=== PATIENT | female | born 1955 | race Caucasian/White ===

== ENCOUNTER → 2020-08-19 12:40 | Outpatient (CLI) | payer MEDICARE, BC, SELFPAY ==
--- NOTE | ~2020-08-19 | XR_ITS ---
EXAMINATION: XR foot RT min 3V DATE: 08/19/2020 13:25 INDICATION: Right foot injury with pain and swelling in the region of the second and third metatarsal s TECHNIQUE: Dorsoplantar, two oblique and lateral views of the right foot were obtained. COMPARISON: None. FINDINGS: Bone alignment is normal. No fracture. Severe osteoarthritis at the right first metacarpophalangeal j oint with irregular cortical contour and suggestion of subarticular cystic change at both sides of th e joint space. Nonspecific widening of the joint space at the second distal interphalangeal joint whi ch could result in the presence of a joint effusion or due to a prior osteotomy at the head of the mi ddle phalanx. Mild osteoarthritis at several of the tarsal metatarsal, interphalangeal and remaining metatarsophalangeal joints. Small plantar calcaneal spur. Mild hypertrophic change at the dorsolatera l aspect of the anterior process of the calcaneus. Soft tissues are unremarkable. IMPRESSION: 1. No acute osseous abnormality. 2. 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 Reviewed, dictated and finalized at location A.
== END ==
PROVIDERS: Visit Provider Family Medicine Adolescent Medicine
DX: S99.921A Unspecified injury of right foot, initial encounter (principal); M19.071 Primary osteoarthritis, right ankle and foot
CPT/HCPCS: 73630

== ENCOUNTER 2021-12-28 18:34 | Emergency (ER) | payer MEDICARE, SELFPAY ==
[2021-12-28 18:48] VITALS: BP 126/84; PULSE 72; RESP 18; TEMP 36.8; O2SAT 97
--- NOTE | 2021-12-28 19:14 | ED.GENADULT ---
HPI - General Adult General Chief complaint: Wound/Laceration Stated complaint: laceration lt 5th finger History of Present Illness HPI narrative: Patient is a 66-year-old female who presents to [facility] for evaluation of a left pinky injury that occurred yesterday at 7 PM. Patient reports she accidentally lacerated pinky on hair spring cutter while quilting. She is accompanied by her . Additionally, she reports pain and swelling. No improvement after using Vaseline. Patient does not believe she is up-to-date on her tetanus. Related Data Home Medications Medication Instructions Recorded Confirmed oxybutynin chloride 10 mg 10 mg PO DAILY 12/17/21 12/28/21 tablet,extended release 24 hr Allergies Allergy/AdvReac Type Severity Reaction Status Date / Time Penicillins Allergy Unknown Rash Verified 12/28/21 18:57 Review of Systems Review of Systems: Pertinent negatives: fever, chills, sweats, malaise, change in appetite, poor p.o. intake, malaise, skin color changes, streaking, rash, warmth, numbness, tingling, loss of sensation, deformity, decreased range of motion, weakness, difficulty with coordination, nausea, vomiting, shortness of breath, chest pain, heart palpitations, and heart murmur. PMFSH Surgical History Surgical History History of tonsillectomy and adenoidectomy Hx of dilation and curettage Family History Family History Father Hypertension Alzheimers disease Heart disease Mother Hypertension Alzheimers disease Heart disease Sibling Diabetes mellitus COPD (chronic obstructive pulmonary disease) Sibling Melanoma Social History Social History Smoking status: Never smoker Comments I have reviewed and agree with the patient's past medical, surgical, social, and family hx as documented by the RN. There is no relevant family history pertinent to the presenting complaint. Exam Narrative: GENERAL: Well-appearing, well-nourished, and in no acute distress. HEAD: Normocephalic, atraumatic. NECK: Supple. No Lymphadenopathy or nuchal rigidity appreciated. CHEST: Bilateral lung sotelo are clear to auscultation. No respiratory distress. No evidence of cough or pleuritic cp upon examination. HEART: Regular rate and rhythm. No murmur, gallop, or rub heard. EXTREMITIES: No evidence of decreased ROM, cyanosis, deformity, rash, or puncture. No evidence of pain with active/passive ROM. No evidence of dislocation, ligament laxity, effusion, or pain at rest. Pulses palpable at 2+, strength 5/5, and cap refill < 3 seconds in affected extremity. DTRs normal. Gait normal. SKIN: Warm, dry, no rash. Mild swelling noted to tip of left 5th digit. 0.5 cm linear laceration is noted to the dorsal aspect of the distal end of 5th digit. Laceration involves nail. Laceration is clean. NEURO: No focal deficits. Alert and oriented x3. SPECIAL OBSERVATIONS: Smiling. Laughing. Course Course Level of Care: Express Care Visit Vital Signs Vital signs: Vital Signs Temperature 98.3 F 12/28/21 18:48 Pulse Rate 72 12/28/21 18:48 Respiratory Rate 18 12/28/21 18:48 Blood Pressure 126/84 12/28/21 18:48 Pulse Oximetry 97 12/28/21 18:48 Oxygen Delivery Room Air 12/28/21 18:48 Temperature 98.3 F 12/28/21 18:48 Pulse Rate 72 12/28/21 18:48 Respiratory Rate 18 12/28/21 18:48 Blood Pressure 126/84 12/28/21 18:48 Pulse Oximetry 97 12/28/21 18:48 Oxygen Delivery Room Air 12/28/21 18:48 Reviewed Medical Decision Making Differential Diagnosis Differential Diagnosis: Laceration, abrasion, cellulitis, ulcer Vital Signs Vital Signs: Vital Signs Temperature 98.3 F 12/28/21 18:48 Pulse Rate 72 12/28/21 18:48 Respiratory Rate 18 12/28/21 18:48 Blood Pressure 126/84 10/1
[2021-12-28] MEDS: TETANUS/DIPHTHERIA TOXOIDS ADSORB 0.5 ML VIAL (*BKC) IM (19:17)
== END 2021-12-28 19:36 | disposition home or self-care (01) ==
PROVIDERS: Emergency Provider Nurse Practitioner Family; PCP Family Medicine Adolescent Medicine
DX: S61.217A Laceration without foreign body of left little finger without damage to nail, initial encounter (principal); W27.8XXA Contact with other nonpowered hand tool, initial encounter; Z23 Encounter for immunization; E78.00 Pure hypercholesterolemia, unspecified
CPT/HCPCS: 29130; 90471; 90714; 99213; G0463

== ENCOUNTER 2022-01-13 08:24 | Outpatient (CLI) | payer MEDICARE, SELFPAY ==
--- NOTE | 2022-01-13 08:28 | EST_ITS ---
Patient Info Name: Raysa Quan Age: 66 years : 1955 Gender: Female Ht: 67 in Wt: 165 lbs BSA: 1.89 m2 BP: 128 / 79 mmHg Technical Quality: Good Exam Date: 01/13/2022 9:17 AM Exam Location: [facility] Pulmonary Patient Status: Outpatient Admit Date: 01/13/2022 Staff Ordering Physician: Chadwick Coburn MD Senior Librarian: Shanice Mcclellan RDCS, RT Referring Physician: Irish COBURN; Exercise Technologist: Jennie Fong CT Exercise Physician: Linda Rossi MD Exam Type: CA stress echo Study Info Indications R07.9 - Chest pain, unspecified Treadmill exercise stress echocardiogram is performed. Summary 1. Exercise ECG is equivocal for ischemia. 2. Normal left venticular systolic function with no regional wall motion abnormalities noted at rest. 3. Overall global left ventricular systolic function Improved post stress. 4. No regional wall motion abnormalities noted post stress. 5. Normal augmentation of all wall segments without evidence of ischemia with stress. Stress Echo Findings Left Ventricle Normal left venticular systolic function with no regional wall motion abnormalities noted at rest. Overall global left ventricular systolic function Improved post stress. No regional wall motion abnormalities noted post stress. Normal augmentation of all wall segments without evidence of ischemia with stress. Protocol: Oracio Stress ECG Details Stage: REST Duration (min): 0 min : 59 sec Speed (mph): 0.0 Grade (%): 0 HR (bpm): 55 SBP (mmHg): 128 DBP (mmHg): 79 METS: --- Stage: REST Duration (min): 11 min : 37 sec Speed (mph): 0.0 Grade (%): 0 HR (bpm): 57 SBP (mmHg): 128 DBP (mmHg): 79 METS: --- Stage: STAGE 1 Duration (min): 1 min : 0 sec Speed (mph): 1.7 Grade (%): 10 HR (bpm): 87 SBP (mmHg): 128 DBP (mmHg): 79 METS: --- Stage: STAGE 1 Duration (min): 2 min : 0 sec Speed (mph): 1.7 Grade (%): 10 HR (bpm): 100 SBP (mmHg): 128 DBP (mmHg): 79 METS: --- Stage: STAGE 1 Duration (min): 3 min : 0 sec Speed (mph): 1.7 Grade (%): 10 HR (bpm): 95 SBP (mmHg): 168 DBP (mmHg): 82 METS: --- Stage: STAGE 2 Duration (min): 1 min : 0 sec Speed (mph): 2.5 Grade (%): 12 HR (bpm): 109 SBP (mmHg): 168 DBP (mmHg): 82 METS: --- Stage: STAGE 2 Duration (min): 2 min : 0 sec Speed (mph): 2.5 Grade (%): 12 HR (bpm): 111 SBP (mmHg): 176 DBP (mmHg): 88 METS: --- Stage: STAGE 2 Duration (min): 3 min : 0 sec Speed (mph): 2.5 Grade (%): 12 HR (bpm): 117 SBP (mmHg): 176 DBP (mmHg): 88 METS: --- Stage: STAGE 3 Duration (min): 1 min : 0 sec Speed (mph): 3.4 Grade (%): 14 HR (bpm): 125 SBP (mmHg): 194 DBP (mmHg): 92 METS: --- Stage: STAGE 3 Duration (min): 2 min : 0 sec Speed (mph): 3.4 Grade (%): 14 HR (bpm): 136 SBP (mmHg): 194 DBP (mmHg): 92 METS: ---
== END 2022-01-13 08:25 | disposition home or self-care (01) ==
PROVIDERS: Visit Provider Family Medicine Adolescent Medicine
DX: R07.9 Chest pain, unspecified (principal); E78.00 Pure hypercholesterolemia, unspecified
CPT/HCPCS: 93351

== ENCOUNTER → 2023-01-26 14:38 | Outpatient (CLI) | payer MEDICARE, SELFPAY ==
--- NOTE | ~2023-01-26 | XR_ITS ---
XR chest 2V DATE: 01/26/2023 14:56 INDICATION: Cough TECHNIQUE: 2 views COMPARISON: 02/08/2009 FINDINGS: Heart size is within normal limits. There is minimal aortic unfolding. No pulmonary infil trate or consolidation, pulmonary vascular congestion or pleural effusion or pneumothorax. IMPRESSION: No active cardiopulmonary disease Reviewed, dictated and finalized at location L. PULLER
== END ==
PROVIDERS: PCP Family Medicine Adolescent Medicine; Visit Provider Family Medicine Adolescent Medicine
DX: R05.9 Cough, unspecified (principal)
CPT/HCPCS: 71046

== ENCOUNTER 2023-04-25 10:05 | Emergency (ER) | payer MEDICARE, SELFPAY ==
[2023-04-25 10:20] VITALS: BP 121/90; PULSE 70; RESP 16; TEMP 35.9; O2SAT 98
--- NOTE | 2023-04-25 10:29 | ED.URI ---
HPI - URI/Sore Throat General Chief Complaint: Upper Respiratory Infection Stated Complaint: COUGH/SORE THROAT/CONGESTION Time Seen by Provider: 04/25/23 10:29 Source: patient, RN notes reviewed and old records reviewed Mode of arrival: ambulatory Limitations: no limitations History of Present Illness HPI Narrative: 67-year-old female presents to the [facility] with complaints of cough, sore throat and congestion that started on , 3 days ago Patient states that she has had an intermittent cough since November, was evaluated by her primary care provider in December, reviewed medical record from then. Patient had stop lisinopril. Patient states that her cough did improve at that time and never called her primary care back. Patient reports taken and at home COVID test which she reports is negative Patient denies chest pain or shortness of breath. Has just had an intermittent cough sometimes productive with clear mucus Patient denies any fevers Related Data Home Medications Medication Instructions Recorded Confirmed aspirin 81 mg tablet,delayed 81 mg PO DAILY 05/06/22 04/25/23 release (Adult Aspirin Regimen) mirabegron 50 mg tablet,extended 50 mg PO DAILY 12/28/22 04/25/23 release 24 hr (Myrbetriq) bimatoprost 0.01 % eye drops 2 drp EACH EYE USEASDIRECTD 04/25/23 04/25/23 (Iraidaigan) Allergies Allergy/AdvReac Type Severity Reaction Status Date / Time lisinopril Allergy Unknown Cough Verified 04/25/23 10:27 Penicillins Allergy Unknown Rash Verified 04/25/23 10:27 Review of Systems Review of Systems: All systems reviewed & are unremarkable except as noted in HPI and below Constitutional: Constitutional: Reports no additional constitutional complaints Eyes: Eyes: Reports no additional eye complaints ENT: Reports system reviewed and no additional complaints, except as documented Cardiovascular: Cardiovascular: Reports no additional cardiovascular complaints, Denies chest pain and Denies dyspnea Respiratory: Respiratory: Reports as per HPI, Denies chest congestion, Reports cough and Denies dyspnea Gastrointestinal: Gastrointestinal: Reports no additional gastrointestinal complaints, Denies abdominal pain, Denies nausea and Denies vomiting Musculoskeletal: Musculoskeletal: Reports no additional musculoskeletal complaints Integumentary/Breasts: Skin/Breast: Reports system reviewed and no additional complaints, except as docu Neurologic: Reports system reviewed and no additional complaints, except as documented Psychiatric: Psychiatric: Reports no additional psychiatric complaints Allergic/Immunologic: Allergic/Immunologic: Reports no additional allergic/immunologic complaints PMFSH Surgical History Surgical History History of tonsillectomy and adenoidectomy Hx of dilation and curettage Family History Family History Father Hypertension Alzheimers disease Heart disease Mother Hypertension Alzheimers disease Heart disease Sibling Diabetes mellitus COPD (chronic obstructive pulmonary disease) Sibling Melanoma Social History Social History Smoking status: Never smoker Comments At the time of my signature, I reviewed and agree with the nursing past medical, surgical, social, and family history. There is no relevant family history pertinent to the patient complaint. Exam Const: General: cooperative, healthy appearing, comfortable, no acute distress, well developed, alert and well nourished Nutritional Appearance: well nourished Orientation/consciousness: patient oriented x3 Limitations: no limitations HENMT: Head: normal to inspection Ears: hearing grossly normal bilaterally, external ears normal, TM's normal bilaterally, EAC's normal, mastoids normal and no periauricular adenopathy Face/Nose/Sinus: Normal external nose pr
== END 2023-04-25 11:11 | disposition home or self-care (01) ==
PROVIDERS: Emergency Provider Nurse Practitioner; PCP Family Medicine Adolescent Medicine
DX: R09.82 Postnasal drip (principal); R05.1 Acute cough; Z79.82 Long term (current) use of aspirin
CPT/HCPCS: 87081; 87880; 99213; G0463

== ENCOUNTER 2023-08-25 09:06 | Emergency (ER) | payer MEDICARE, SELFPAY ==
--- NOTE | 2023-08-25 09:10 | ED.URI ---
HPI - URI/Sore Throat General Chief Complaint: Upper Respiratory Infection Stated Complaint: SORE THROAT/COUGH/LOSING VOICE Time Seen by Provider: 08/25/23 09:10 Source: patient Mode of arrival: ambulatory Limitations: no limitations History of Present Illness HPI Narrative: Patient is a 59-year-old female that presents with sore throat, cough, congestion and hoarseness for 4 days. Patient seen for same symptoms in April. Denies any fever, chills, nausea, vomiting, diarrhea. Patient took at home COVID test that was negative. Patient has been taking Tessalon Perles and DayQuil. Related Data Home Medications Medication Instructions Recorded Confirmed aspirin 81 mg tablet,delayed 81 mg PO DAILY 05/06/22 08/25/23 release (Adult Aspirin Regimen) mirabegron 50 mg tablet,extended 50 mg PO DAILY 12/28/22 08/25/23 release 24 hr (Myrbetriq) bimatoprost 0.01 % eye drops 2 drp EACH EYE USEASDIRECTD 04/25/23 08/25/23 (Iraidaigan) Allergies Allergy/AdvReac Type Severity Reaction Status Date / Time lisinopril Allergy Unknown Cough Verified 04/25/23 10:27 Penicillins Allergy Unknown Rash Verified 04/25/23 10:27 Review of Systems Review of Systems: All systems reviewed & are unremarkable except as noted in HPI and below Constitutional: Constitutional: Denies body ache(s), Denies chills, Denies fatigue, Denies fever(s), Denies headache(s), Denies malaise and Denies weakness Eyes: Eyes: Denies blurry vision, Denies itchy eyes and Denies loss of vision ENT: Denies otalgia, Denies headache(s), Reports hoarseness, Reports nasal congestion, Denies sinus pain and Reports sore throat Cardiovascular: Cardiovascular: Denies chest pain, Denies irregular heart rhythm and Denies dyspnea Respiratory: Respiratory: Reports cough and Denies dyspnea Gastrointestinal: Gastrointestinal: Denies abdominal pain, Denies diarrhea, Denies nausea and Denies vomiting Musculoskeletal: Musculoskeletal: Denies back pain, Denies myalgias and Denies arthralgias Integumentary/Breasts: Skin/Breast: Denies pruritus and Denies rash Neurologic: Denies headache(s), Denies loss of vision and Denies weakness Psychiatric: Psychiatric: Reports no additional psychiatric complaints Endocrine: Endocrine: Denies fatigue Allergic/Immunologic: Allergic/Immunologic: Denies itchy eyes PMFSH Surgical History Surgical History History of tonsillectomy and adenoidectomy Hx of dilation and curettage Family History Family History Father Hypertension Alzheimers disease Heart disease Mother Hypertension Alzheimers disease Heart disease Sibling Diabetes mellitus COPD (chronic obstructive pulmonary disease) Sibling Melanoma Social History Social History Smoking status: Never smoker Comments At time of signature, agree with nursing past medical, surgical, social and family history. There is no relevant family history pertinent to the presenting complaint. Exam Const: General: cooperative, healthy appearing, comfortable, no acute distress and well nourished Nutritional Appearance: well nourished Orientation/consciousness: patient oriented x3 Limitations: no limitations HENMT: Head: normal to inspection, normocephalic and atraumatic Ears: hearing grossly normal bilaterally, external ears normal, TM's normal bilaterally, EAC's normal and no periauricular adenopathy Face/Nose/Sinus: Normal external nose present, Abnormal mucous membranes and turbinates present erythematous bilateral and diffuse, normal facial exam, sinuses nontender and face symmetric Face and sinus: normal facial exam, sinuses nontender and face symmetric Mouth: Yes Normal oral and palatal mucosa present, Yes lip normal, Yes tongue normal, Yes Normal salivary glands and ducts present, Yes oropharynx normal and Yes mo
[2023-08-25 09:20] VITALS: BP 130/97; PULSE 71; RESP 15; TEMP 37.3; O2SAT 98
[2023-08-25 09:45] VITALS: BP 114/70; PULSE 61; RESP 15; TEMP 36.8; O2SAT 99
== END 2023-08-25 09:50 | disposition home or self-care (01) ==
PROVIDERS: Emergency Provider Nurse Practitioner Family; PCP Family Medicine Adolescent Medicine
DX: J06.9 Acute upper respiratory infection, unspecified (principal); R05.9 Cough, unspecified
CPT/HCPCS: 87081; 87880; 99213; G0463

== ENCOUNTER 2024-03-10 12:22 | Outpatient (CLI) | payer MEDICARE, SELFPAY ==
--- NOTE | 2024-03-10 14:48 | WPDPFTINT ---
PFT Procedure Performed PFT Procedure Performed Spirometry with Pre/Post Bronchodilator Plethysmography (Lung Vol) Diffusing Cap (DLCO) Flow Vol Loop PFT Interpretation This is a pulmonary function test with pre and post-bronchodilator spirometry, plethysmography and diffusing capacity. The test was performed and results interpreted in accordance with the 2019 and 2005 ATS/ERS Task Force guidelines respectively using the Global Lung Function Initiative-2012 reference equations. Patient demonstrated good effort and cooperation. Reproducibility criteria were met. The quality of the pre bronchodilator spirometry maneuver was Grade A and post bronchodilator spirometry maneuver was Grade A. Findings: Spirometry: The contour the inspiratory and expiratory flow tracing are normal. The pre bronchodilator FVC is 2.63 L, 82% predicted. The pre bronchodilator FEV1 is 2.13 L, 87% predicted. The pre bronchodilator FEV1: FVC ratio is 81%. The post bronchodilator FVC is 2.63 L, representing no change. The post bronchodilator FEV1 is 2.21 L, representing a 4% increase. The post bronchodilator FEV1: FVC ratio is 84%. Plethysmography: The total lung capacity is 5.52 L, 100% predicted. The functional residual capacity is 3.29 L, 104% predicted. The residual volume is 2.85 L, 123% predicted. Diffusing capacity: The diffusing capacity unadjusted for hemoglobin and carboxyhemoglobin is 19.3, 88% predicted. The diffusing capacity adjusted for alveolar volume is 4.86, 117% predicted. Impression: The spirometry is normal without evidence of an obstructive abnormality. There is no significant improvement after inhaling a single dose of albuterol. The lung volumes are normal. The diffusing capacity is normal. There are no prior studies for comparison
== END 2024-03-10 12:23 | disposition home or self-care (01) ==
LOC: ANHPFT 12:22
PROVIDERS: PCP Family Medicine Adolescent Medicine; Visit Provider Nurse Practitioner Family
DX: R05.9 Cough, unspecified (principal); R94.2 Abnormal results of pulmonary function studies
CPT/HCPCS: 94060; 94726; 94729

== ENCOUNTER 2024-08-10 13:26 | Outpatient (CLI) | payer MEDICARE, SELFPAY ==
--- NOTE | ~2024-08-10 | DEXA_ITS ---
Bone Density Report Name: SHEY HOUSER Age: 68 Sex: Female Ethnicity: White Date of : 1955 Indication: postmenopausal; screening for osteoporosis; asthma or emphysema; Referring Provider: ALY ESTRADA Study: Bone densitometry was performed. Exam Date: August 10, 2024 Accession number: [id number] Bone Density: Region BMD T-score Z-score Classification AP Spine(L1-L4) 1.030 -0.2 1.9 Normal Femoral Neck (Left) 0.776 -0.7 1.1 Normal Total Hip (Left) 0.995 0.4 1.9 Normal Femoral Neck (Right) 0.777 -0.6 1.1 Normal Total Hip (Right) 0.951 0.1 1.6 Normal Femoral Neck Mean 0.777 -0.7 1.1 Normal Total Hip Mean 0.973 0.3 1.7 Normal World Health Organization criteria for BMD impression classify patients as: Normal (T-score at or above -1.0), Osteopenia (T-score between -1.0 and -2.5), or Osteoporosis (T-score at or below -2.5). Clinical Information Provided by Patient: Has the following medical conditions: Asthma or Emphysema Patient maximum height was 67 Menopause Age: 51 No regular weight bearing exercise Drinks caffeinated beverages Onset of menses at age 16 Number of children 1 Impression: The patient has normal bone mass. Discussion: BONE DENSITY IS ABOVE THE MINIMUM DESIRABLE LEVEL AT ALL SKELETAL SITES TESTED. This patient?s bone mineral density is above the minimum desirable level (T-score -1.0 or better) at all sites measured. The patient should follow a healthful lifestyle (good nutrition with adequate calcium and vitamin D, and appropriate weight-bearing exercise). Follow-Up: Consider repeating this study in 5 years or sooner if there is some new clinical indication. Reported by: JOHNATHON on 08/10/2024 1:49:00 PM. Reviewed, dictated and finalized at location A.
--- OUTSIDE RECORDS SUMMARY | 2024-08-10 13:31 | XMS_ITS | Referral Summary ---
Author Organization [facility] Address [address] [place] [address] Care Team Providers Care Sr. Merchandise Planner Name Role Phone Chadwick Coburn MD Primary Care Prov ider Allergies Active Allergy Reactions Criticality Noted Date Comments Lisinopril Muscle pain Medium 01/10/2024 Penicillins Unknown 04/07/2011 Medications Maged Ellipta 200-62.5-25 mcg inhaler Inhale 1 puff daily Active cetirizine (ZyrTEC) 10 mg tablet Take 1 tablet (10 mg total) by mouth daily Active azelastine (ASTELIN) 137 mcg (0.1 %) nasal spray Administer 2 sprays into each nostril 2 (two) times a day Active famotidine (PEPCID) 40 mg tablet Take 1 tablet (40 mg total) by mouth daily Active Myrbetriq 50 mg tablet extended release 24 hr Take 1 tablet (50 mg total) by mouth daily Active Flonase Allergy Relief 50 mcg/actuation nasal spray Administer 2 sprays into each nostril daily Active EPINEPHrine 0.3 mg/0.3 mL auto-injection syringe Inject 0.3 mL (0.3 mg total) under the skin once Active montelukast (SINGULAIR) 10 mg tablet Take 1 tablet (10 mg total) by mouth nightly Active albuterol HFA (PROVENTIL HFA,VENTOLIN HFA,PROAIR HFA) 90 mcg/actuation inhaler Inhale 2 puffs every 6 (six) hours as needed Active rosuvastatin (CRESTOR) 5 mg tablet Take 1 tablet (5 mg total) by mouth daily Active Active Problems Problem Noted Date Diagnosed Date Benign nevus 09/11/2016 Sebaceous cyst 09/11/2016 Skin neoplasm 09/11/2016 Benign neoplasm of skin 04/07/2011 Social History Tobacco Use Types Packs/Day Years Used Date Smoking Tobacco: Never Comments Unknown Sex and Gender Information Value Date Recorded Sex Assigned at Not on file 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 Merchandise Planner Relationship Specialty Start Date End Date Chadwick Coburn MD [address] [place] [address] PCP - General Family Medicine 10/26/19
--- OUTSIDE RECORDS SUMMARY | 2024-08-10 13:31 | XMS_ITS | Encounter Summary ---
Author Organization [facility] Address [address] [place] [address] Care Team Providers Care Postal Support Employee Name Role Phone Chadwick Coburn MD Primary Care Provider [phone] Encounter Details Date Type Department Care Team (Latest Contact Info) Description 10/10/2003 Outpatient Historical [facility] Boucher, Nickolas Avlarado MD [address] [facility] [address] [place] [address] FOLLOW-UP EXAM NEC (Primary Dx) Social History Tobacco Use Types Packs/Day Years Used Date Smoking Tobacco: Never Assessed Comments Unknown Sex and Gender Information Value Date Recorded Sex Assigned at Not on file 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
--- OUTSIDE RECORDS SUMMARY | 2024-08-10 13:31 | XMS_ITS | Encounter Summary ---
Author Organization [facility] Address [address] [place] [address] Care Team Providers Care Data Base Design Analyst Name Role Phone Aly Coburn MD Primary Care Provider +1- [phone] Encounter Details Date Type Department Care Team (Latest Contact Info) Description 10/17/2007 Outpatient Historical HIS [facility] Jonathan Anderson MD [address] [facility] [address] [place] [address] Other Screening Mammogram Social History Tobacco Use Types Packs/Day Years Used Date Smoking Tobacco: Never Assessed Comments Unknown Sex and Gender Information Value Date Recorded Sex Assigned at Not on file 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 [place], [place] [address] Admit Date: 10/17/2007 SHEY HOUSER Sex: F Admit Prov: JONATHAN LEE Date: 1955 Primary Care Prov: ALY LOEPZ CMRN: [id number] Room: LIZ N: [id number] IMAGING SERVICES Ordering Prov: JONATHAN LEE Accession Number: [id number] Interpretation BILATERAL SCREENING DIGITAL MAMMOGRAMS WITH COMPUTER ASSISTED DIAGNOSIS, 10/17/2007 Reason For Examination: History of abnormal mammograms. Prior benign biopsy on the left. Findings: The parenchyma is moderately dense. Benign-appearing nodules are seen bilaterally. There is no spiculation, malignant calcification or other sign of malignancy. Since 10/21/2006, there has been no significant change. The CAD system was utilized. Conclusion: No mammographic evidence of malignancy. Assessment BIRADS: 2-Benign finding Recommendation: Normal interval follow-up Dictated by: ZACK MUÑOZ Electronically signed by: ZACK MUÑOZ 10/17/2007 14:31 Transcribed: 10/17/2007 14:00 DKT Procedure Note Zack Muñoz MD - 10/17/2007 [facility] [place] [address], [place] [address] Admit Date: 10/17/2007 SHEY HOUSER Sex: F Admit Prov: JONATHAN LEE Date: 1955 Primary Care Prov: ALY LOPEZ CMRN: [id number] Room: LIZ N: [id number] IMAGING SERVICES Ordering Prov: JONATHAN LEE Interpretation BILATERAL SCREENING DIGITAL MAMMOGRAMS WITH COMPUTER ASSISTEDDIAGNOSIS, 10/17/2007 Reason For Examination: History of abnormal mammograms. Prior benignbiopsy on the left. Findings: The parenchyma is moderately dense. Benign-appearingnodules are seen bilaterally. There is no spiculation, malignant calcification orother sign of malignancy. Since 10/21/2006, there has been no significant change. The CAD systemwas utilized. Conclusion: No mammographic evidence of malignancy. Assessment BIRADS: 2-Benign finding Recommendation: Normal interval follow-up Dictated by: ZACK MUÑOZ Electronically signed by: ZACK MUÑOZ 10/17/2007 14:31 Transcribed: 10/17/2007 14:00 DKT us Jonathan Lee MD MAMMO ORDERABLES Final Resul t documented in this encounter Visit Diagnoses Diagnosis Other screening mammogram documented in this encounter Care Teams Data Base Design Analyst Relationship Specialty Start Date End Date Aly Coburn MD PCP - General 11/05/08 documented as of this encounter
--- OUTSIDE RECORDS SUMMARY | 2024-08-10 13:31 | XMS_ITS ---
Author Organization [facility] [place] ([address]) Address [address] [place] [address] Care Team Providers Care Nursing Informatics Analyst Name Role Phone Chadwick Tapia Primary Care Provider Unavail Connie Rose Unavailable [phone] Chadwick Makrham Unavailable [phone] REASON FOR VISIT SCIT (Aeroallergen) Social History Sex Assigned At : Social History Observation Description Sex Assigned At Female Encounters Encounter Location Date Provider Diagnosis [facility] [address] [place] [address] 08/09/2024 Chadwick Markham Plan Of Treatment Next Appt Details Provider Name:Chadwick Markham , 08/31/2024 02:00:00 PM, [email or web address], [address], Provider Name:Connie arellano, 11/28/2024 10:00:00 AM, [email or web address], [place], [address], Progress Notes * Raysa HOUSERDOB: (68 yo F)Acc No.[id number]:08/09/2024 SCIT-Aeroallergen Patient: Nelli ROSASgy Provider: Paulina Markham MD :1955 A ge:68 Y S ex:Female Date:08/09/2024 Address:[address] [place], [place] [address] Pcp:Chadwick Tapia Subjective: * Chief Complaints: * 1 . SCIT (Aeroallergen). * Medical History: Objective: * Vitals: Assessment: Plan: * Treatment: * Billing Information: * Visit Code: * Procedure Codes: * Electronic signature of Francis Markham MD, FAAAAI on 08/10/2024 at 01:30 PM CDT Sign off status: Pending * Provider: Paulina Markham MD Date: 0 08/09/2024 Generated for Jacindai rosalva/Gabrielle/Maggieitting on: 08/10/2024 01:30 PM CDT
--- OUTSIDE RECORDS SUMMARY | 2024-08-10 13:31 | XMS_ITS | Encounter Summary ---
Author Organization [facility] Address [address] [place] [address] Care Team Providers Care Supervisor Gear Repair Name Role Phone Chadwick Coburn MD Primary Care Provider +1- [phone] Encounter Details Date Type Department Care Team (Latest Contact Info) Description 10/02/2002 Outpatient Historical HIS [facility] Boucher, Nickoals Alvarado MD [address] [facility] [address] [place] [address] UNSP ABNORMAL MAMMOGRAM (Primary Dx) Social History Tobacco Use Types Packs/Day Years Used Date Smoking Tobacco: Never Assessed Comments Unknown Sex and Gender Information Value Date Recorded Sex Assigned at Not on file 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
--- OUTSIDE RECORDS SUMMARY | 2024-08-10 13:31 | XMS_ITS | Encounter Summary ---
Author Organization [facility] Address [address] [place] [address] Care Team Providers Care Load Out Worker Name Role Phone Chadwick Coburn MD Primary Care Provider +1- [phone] Encounter Details Date Type Department Care Team (Latest Contact Info) Description 10/21/2006 Outpatient Historical HIS [facility] Boucher, Nickolas Alvarado MD [address] [facility] [address] [place] [address] Lump or Mass in Breast (Primary Dx) Social History Tobacco Use Types Packs/Day Years Used Date Smoking Tobacco: Never Assessed Comments Unknown Sex and Gender Information Value Date Recorded Sex Assigned at Not on file 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
--- OUTSIDE RECORDS SUMMARY | 2024-08-10 13:31 | XMS_ITS ---
Author Organization [facility] [facility] ([address]) Address [address] [place] [address] Care Team Providers Care District Agent Name Role Phone Chadwick Tapia Primary Care Provider Unavail able Connie Portillo Unavailable [phone] Chadwick Markham Unavailable [phone] REASON FOR VISIT SCIT - Traditional Schedule Immunotherapy (Week ), Needs evaluation for pre- immunotherapy health questionnaire to assess health status and medication review Medications Medication SIG (Take, Route, Frequency, Duration) Notes Start Date End Date Status Cetirizine HCl 10 MG 1 tablet Orally Onc e a day for 90 days Active Myrbetriq 50 MG 1 tablet Orally Once a day Not-Taking Myrbetriq Not-Taking SIT (Cluster) variable - see record per schedule subcutaneous per schedule for 999 days Active EPINEPHrine 0.3 MG/0.3ML as directed Inj ection once for 30 days 10/20/2023 Active SIT (Traditional) variable - see record per schedule subcutaneous per schedule for 999 days Active Cetirizine HCl 10 MG TAKE 1 TABLET BY [facility] ONCE DAILY for 90 Active Rosuvastatin Calcium 5 MG 1 tablet Orally Once a day Active Flonase Allergy Relief 50 MCG/ACT 1 spray in each nostril Nasally Once a day Active Rosuvastatin Calcium Active AeroChamber MV - as directed for 30 days Any adult spacer Active Albuterol Sulfate HFA 108 (90 Base) MCG/ACT 1 puff as needed Inhalation every 4 hrs for 30 days Active Montelukast Sodium 10 MG 1 tablet Orally 30 minutes prior to SCIT for 30 days Active Famotidine 40 MG 1 tablet Orally 30 minutes prior to SCIT for 30 days Active Trelegy Ellipta 200-62.5-25 MCG/ACT 1 puff Inhalation Once a day for 90 days Active Azelastine HCl 137 MCG/SPRAY 2 sprays in each nostril Nasally Twice a day for 90 days Active Fluticasone Propionate 50 MCG/ACT 1 spray in each nostril Nasally Twice a day for 90 days Active Social History Sex Assigned At : Social History Observation Description Sex Assigned At Female Encounters Encounter Location Date Provider Diagnosis [facility] [address] [facility] [address] [place] [address] 08/10/2024 Chadwick Markham Allergic rhinitis du e to pollen J30.1 ; Allergic rhinitis due to animal (cat) (dog) hair and dander J30.81 ; Other allergic rhinitis J30.89 and Other chronic allergic conjunctivitis H10.45 Assessments Encounter Date Diagnosis (ICD Code) Assessment Notes Treatment Notes Treatment Clinical Notes Section Notes 08/10/2024 Allergic rhinitis due to pollen (ICD-10 - J30.1) 08/10/2024 Allergic rhinitis due to animal (cat) (dog) hair and dander (ICD-10 - J30.81) 08/10/2024 Other allergic rhinitis (ICD-10 - J30.89) 08/10/2024 Other chronic allergic conjunctivitis (ICD-10 - H10.45) 08/10/2024 Other Plan Of Treatment Next Appt Details Follow Up: 1 Week, Reason: S CIT Provider Name:Chadwick Markham , 08/31/2024 02:00:00 PM, [address] [employer] [place] [address], [address], Provider Name:Connie arellano, 11/28/2024 10:00:00 AM, [address] [employer], [address] [place] [address], [address], Progress Notes * Raysa HOUSERDOB: [birth year] (68 yo F)Acc No.[id number]:08/10/2024 SCIT-Aeroallergen Patient: Sherita Raysa MATHIS Provider: Paulina Markham MD :1955 A ge:68 Y S ex:Female Date:08/10/2024 Address:[address] [id number] Pcp:Chadwick Tapia Subjective: * Chief Complaints: * S CIT - Traditional Schedule Immunotherapy (Week )Needs evaluation for pre-immunotherapy health questionnaire to assess health status and medication review * HPI: * Introduction: The patient is here for scheduled specific allergen immunotherapy. Please see the attached specialty form regarding the specifics of the administration of these vaccines. As per our protocol, they must undergo a screening health questionnaire (medication changes, reaction(s) to last immunotherapy dose(s), current health status, ACT (if appropriate), self-injectable epinephrine on patient(?) and peak flow (if appropriate)). Also, the patient must wait in our office for 30 minutes after receiving immunotherapy. Furthermore, every patient must have an epinephrine pen (self-injectable) with them at the time of administration--and carry if for the following 1.5 hours after they leave our office. The patient must also have taken their antihistamine the day of the injection, preferably 2 hours prior. The consent form for SCIT (subcutaneous immunotherapy) is on file. * ROS: A LLERGY: Positive p er the HPI and history, otherwise unremarkable.? S PECIAL SENSES: Positve for n one. C ONSTITUTIONAL: Positive for n one. E NT: Positive p er the HPI and history, otherwise unremarkable.? R ESPIRATORY: Positive for p er the HPI and history, otherwise unremarkable. O PHTHALMOLOGY: Positive for p er the HPI and history, otherwise unremarkable. E NDOCRINOLOGY: Positive for n one. C ARDIOLOGY: Positive for n one. G ASTROENTEROLOGY: Positive for n one. U ROLOGY: Positive for n one. D ERMATOLOGY: Positive for n one. N EUROLOGY: Positive for n one. H EMATOLOGY/LYMPH: Positive for n one. M USCULOSKELETAL: Positive for n one. P SYCHOLOGY: Positive for n one. A ll other review of systems per the HPI and history, othwise unremarkable. * Medical History: * Surgical History: * Hospitalization/Major Diagno stic Procedure: * Medications: T akingCetirizine HCl 10 MG Tablet 1 tablet Orally Once a day Fluticasone Propionate 50 MCG/ACT Suspension 1 spray in each nostril Nasally Twice a day Azelastine HCl 137 MCG/SPRAY Solution 2 sprays in each nostril Nasally Twice a day Albuterol Sulfate HFA 108 (90 Base) MCG/ACT Aerosol Solution 1 puff as needed Inhalation every 4 hrs AeroChamber MV - Miscellaneous as directed Any adult spacerTrelegy Ellipta 200-62.5-25 MCG/ACT Aerosol Powder Breath Activated 1 puff Inhalation Once a day Famotidine 40 MG Tablet 1 tablet Orally 30 minutes prior to SCIT Montelukast Sodium 10 MG Tablet 1 tablet Orally 30 minutes prior to SCIT SIT (Traditional) variable - see record variable - see record per schedule subcutaneous per schedule Rosuvastatin Calcium Flonase Allergy Relief 50 MCG/ACT Suspension 1 spray in each nostril Nasally Once a day Rosuvastatin Calcium 5 MG Tablet 1 tablet Orally Once a day Cetirizine HCl 10 MG Tablet TAKE 1 TABLET BY MOUTH ONCE DAILY EPINEPHrine 0.3 MG/0.3ML Solution Auto-injector as directed Injection once SIT (Cluster) variable - see record variable - see record per schedule subcutaneous per schedule Taking Cetirizine HCl 10 MG Tablet 1 tablet Orally Once a day Taking Fluticasone Propionate 50 MCG/ACT Suspension 1 spray in each nostril Nasally Twice a day Taking Azelastine HCl 137 MCG/SPRAY Solution 2 sprays in each nostril Nasally Twice a day Taking Albuterol Sulfate HFA 108 (90 Base) MCG/ACT Aerosol Solution 1 puff as needed Inhalation every 4 hrs Taking AeroChamber MV - Miscellaneous as directed Any adult spacerTaking Trelegy Ellipta 200-62.5-25 MCG/ACT Aerosol Powder Breath Activated 1 puff Inhalation Once a day Taking Famotidine 40 MG Tablet 1 tablet Orally 30 minutes prior to SCIT Taking Montelukast Sodium 10 MG Tablet 1 tablet Orally 30 minutes prior to SCIT Taking SIT (Traditional) variable - see record variable - see record per schedule subcutaneous per schedule Taking Rosuvastatin Calcium Taking Flonase Allergy Relief 50 MCG/ACT Suspension 1 spray in each nostril Nasally Once a day Taking Rosuvastatin Calcium 5 MG Tablet 1 tablet Orally Once a day Taking Cetirizine HCl 10 MG Tablet TAKE 1 TABLET BY MOUTH ONCE DAILY Taking EPINEPHrine 0.3 MG/0.3ML Solution Auto-injector as directed Injection once Taking SIT (Cluster) variable - see record variable - see record per schedule subcutaneous per schedule Not-Taking/PRNMyrbetriq Myrbetriq 50 MG Tablet Extended Release 24 Hour 1 tablet Orally Once a day Not-Taking/PRN Myrbetriq Not-Taking/PRN Myrbetriq 50 MG Tablet Extended Release 24 Hour 1 tablet Orally Once a day Objective: * Vitals: Assessment: * Assessment: 1. A llergic rhinitis due to pollen - J30.1 (Primary) 2 . A llergic rhinitis due to animal (cat) (dog) hair and dander - J30.81 3 . O ther allergic rhinitis - J30.89 4 . O ther chronic allergic conjunctivitis - H10.45 Plan: * Treatment: * Procedure Codes: 9 5117 IMMUNOTHERAPY INJECTIONS * Preventive Medicine: Counseling: E xercise C ontinue activity as usual, Avoid heavy lifting on days of allergy immunotherapy. M edication instruction: [facility] for side effects of prescribed medications. E ducation: O ur staff spent an additional 30 minutes in direct contact with the patient educating them on their current diagnoses and proper treatment and prevention of symptoms and the proper use of medications. E ducation 2: O ur staff discussed the appropriate allergen avoidance measures and medication utilization including upper airway hygiene with daily nasal washes given the patient's clinical status and diagnoses. Paulina hi discussed allergy immunotherapy including the relative risks, benefits and alternatives to this treatment as an adjunctive measure to current therapy, Allergy Immunotherapy: Risks: bleeding, infection, allergic reaction, anaphylaxis = severe allergic reaction that can cause ; Benefits: reduced need for medications, improved symptoms, disease modification. Alternatives: watch/wait, change medication regimen, improve allergy avoidance measures, Our staff discussed the warning signs of anaphylaxis and the indications to use self-injectable epinephrine and seek urgent or emergent care. Able to return demonstration of self-injectable epinephrine. * Follow Up: 1 Week (Reason: SCIT) * Billing Information: * Visit Code: * Procedure Codes: 78509 IMMUNOTHERAPY INJECTIONS. * Sign off status: Completed true * Provider: Paulina Markham MD Date: 08/10/2024 Generated for Joe blackwell/Gabrielle/Maggieitting on: 08/10/2024 01:31 PM CDT History and Physical Notes * HPI (History of Present Illness) Category Sub-Category Detail Notes Category Not es *Introduction The patient is here for scheduled specific allergen immunotherapy. Please see the attached specialty form regarding the specifics of the administration of these vaccines. As per our protocol, they must undergo a screening health questionnaire (medication changes, reaction(s) to last immunotherapy dose(s), current health status, ACT (if appropriate), self-injectable epinephrine on patient(?) and peak flow (if appropriate)). Also, the patient must wait in our office for 30 minutes after receiving immunotherapy. Furthermore, every patient must have an epinephrine pen (self-injectable) with them at the time of administration--and carry if for the following 1.5 hours after they leave our office. The patient must also have taken their antihistamine the day of the injection, preferably 2 hours prior. The consent form for SCIT (subcutaneous immunotherapy) is on file.
--- OUTSIDE RECORDS SUMMARY | 2024-08-10 13:31 | XMS_ITS | Continuity of Care Document ---
Author Organization [facility] Address [address] [place] [address] Phone Care Team Providers Care Fireworks Assembly Supervisor Name Role Phone Shahzad KRISHNA, Lex Unavailable Unavailable Medications Medication Instructions Dosage Effective Dates (start - stop) Status Comments peg 3350-electrolytes 236 gram-22.74 gram-6.74 gram-5.86 gram solution 1/2 bottle at 5pm the evening before colonoscopy, 1/2 bottle 6 hrs prior colonoscopy, as directed by physician. - Active or any covered generic Procedures Procedure Date SCREENING COLONOSCOPY ; HIGH RISK SCREENING COLONOSCOPY ; HIGH RISK Advance Directives Directive Yes / No Effective Date File Name No Information Encounters Encounter Description Practice Location Reason(s) For Visit Diagnoses Date Provider Providers Copied on Encounter [facility] [facility], [address], [place], [place], [id number], tel:[phone] [facility] No Information Shahzad Burnett. [address] [place] [address], [id number] , . tel:[phone] Referring Provider: Chadwick Tapia, [address] [place] [address], [address]. tel:[phone] [employer] [facility], [address], [place], [place], [id number], tel:[phone] [facility] No Information Shahzad Burnett. [address] [place], [place], [id number] , . tel:[phone] [employer] [facility], [address], [place], [place], [id number], [place] tel:[phone] [facility] No Information Shahzad Burnett. [address] [facility], [address], [place], [place], [id number] , [place]. tel: [phone] Referring Provider: Chadwick Tapia, [address] [place] [address], [address]. tel:[phone] Family History Family Member Type Diagnosis Age At Onset No Information Payers Payer name Insurance type Covered green party ID Authoriza tibreezy(s) MEDICARE [id number] WEB TPA 3 [id number] Social History Type Description Quantity Date Captured Comments Sex Female Smoking Status No Information Chief Complaint And Reason For Visit No Information Reason For Referral Reason For Referral No Information History Of Present Illness Encounter Date Complaint History Of Prese nt Illness No Information Functional Status Date Functional Assessmen t No Information Instructions Date Instruction Additional Infor mation No Information Assessments Type Assessment Date No Information Patient Care Teams Name Effective Dates (start - stop) Status Members No Information
--- OUTSIDE RECORDS SUMMARY | 2024-08-10 13:31 | XMS_ITS | Encounter Summary ---
Author Organization [facility] Address [address] [place] [address] Care Team Providers Care Internal Controls Analyst Name Role Phone Chadwick Coburn MD Primary Care Provider [phone]- [phone] Encounter Details Date Type Department Care Team (Latest Contact Info) Description 09/16/2001 Outpatient Historical HIS [facility] OME[facility] Boucher, Nickolas Alvarado MD [address] [facility] [address] [place] [address] SCREENING MAMM-MAILG NEOPL-OTHER (Primary Dx) Social History Tobacco Use Types Packs/Day Years Used Date Smoking Tobacco: Never Assessed Comments Unknown Sex and Gender Information Value Date Recorded Sex Assigned at Not on file 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
--- OUTSIDE RECORDS SUMMARY | 2024-08-10 13:31 | XMS_ITS | Encounter Summary ---
Author Organization [facility] Address [address] [place] [address] Care Team Providers Care Head Greenskeeper Name Role Phone Chadwick Coburn MD Primary Care Provider +1- [phone] Encounter Details Date Type Department Care Team (Latest Contact Info) Description 09/21/2002 Outpatient Historical HIS [facility] OMEGA Boucher, Nickolas Alvarado MD [address] [facility] [address] [place] [address] SCREENING MAMM-MAILG NEOPL-OTHER (Primary Dx) Social History Tobacco Use Types Packs/Day Years Used Date Smoking Tobacco: Never Assessed Comments Unknown Sex and Gender Information Value Date Recorded Sex Assigned at Not on file 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
--- OUTSIDE RECORDS SUMMARY | 2024-08-10 13:31 | XMS_ITS | Clinical Summary ---
Author Organization [facility] Address [address] [place] [address] Phone Care Team Providers Care Bottle Assembler Name Role Phone Chadwick Coburn MD Primary Care Provider +1- [phone] Encounters Date Type Department Care Team Description 08/02/2024 External Device Data ST[facility] ABSTRACTION Provider, Abstract 08/01/2024 External Device Data [facility] ABSTRACTION Provider, Abstract 05/31/2024 External Device Data [facility] ABSTRACTION Provider, Abstract 05/20/2024 External Device Data ST[facility] ABSTRACTION Provider, Abstract 05/19/2024 External Device Data ST[facility] ABSTRACTION Provider, Abstract 05/17/2024 External Device Data ST[facility] ABSTRACTION Provider, Abstract 05/17/2024 External Device Data ST[facility] ABSTRACTION Provider, Abstract from Last 3 Months Family History Medical History Relation Name Comments Breast Cancer Neg Hx Cancer Neg Hx Ovarian Cancer Neg Hx Social History Tobacco Use Types Packs/Day Years Used Date Smoking Tobacco: Never Assessed Comments Unknown Sex and Gender Information Value Date Recorded Sex Assigned at Not on file 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 Gender Identity Not on file Sexual Orientation Not on file Occupation Industry Job Start Date Job End Date Not on file Not on file Not on file Not on file Plan of Treatment Health Maintenance Due Date Last Done Comments Pre-Diabetes and Diabetes Screening 1955 DTAP/TDAP/TD VACCINES (1 - Tdap) 1973 FIT-DNA Q 3 years 10/28/1999 FIT/FOBT Q 1 year 10/28/1999 Flex Sig/CT Colonography Q 5 years 10/28/1999 PNEUMOCOCCAL VACCINE 50+ YEA RS (1 of 1 - PCV) 2004 ZOSTER VACCINE (1 of 2) 2004 OSTEOPOROSIS SCREENING 10/28/2019 INFLUENZA VACCINE (#1) 2023 BREAST CANCER SCREENING 02/08/2025 02/09/20 24, 01/20/2023, 12/16/2021, Additional history exists RSV VACCINE (60+ or ) (1 - 1-dose 75+ series) 2029 COLORECTAL SCREENING 10/03/2033 10/04/2023 Colorectal Cancer Screening 10/03/2033 Procedures Procedure Name Priority Date/Time Associated Diagnosis Comments MAMMO 3D SANDRINE SCREEN BILAT W OR WO CAD Routine 02/09/2024 11:49 AM BALLOON ARTIST Visit for screening mammogram from Last 3 Months or Most Recently Relevant to Health Maintenance Results * MAMMO 3D SANDRINE SCREEN BILAT W OR WO CAD (02/09/2024 11:49 AM BALLOON ARTIST) Anatomical Region Laterality Modality Breast Bilateral Mammography 02/09/2024 11:4 9 AM BALLOON ARTIST Impressions 02/09/2024 12:54 PM BALLOON ARTIST IMPRESSION: No mammographic evidence of malignancy. RECOMMENDATIONS: Routine screening mammogram in one year. DICTATION LOCATION: [facility] 02/09/2024 12:54 PM BALLOON ARTIST BILATERAL FULL-FIELD DIGITAL SCREENING MAMMOGRAM WITH CAD WITH 3D TOMOSYNTHESIS DATE: 02/09/2024 11:49 AM HISTORY: Routine screening. TECHNIQUE: Full-field digital craniocaudal and mediolateral oblique projections of both breasts were obtained. Low-dose full-field digital breast tomosynthesis examination was performed with 2D and 3D acquisitions. Examination is read in conjunction with computer aided detection. COMPARISON: 2022, 2021, 2020 BREAST COMPOSITION: There are scattered areas of fibroglandular density. FINDINGS: No new suspicious mass, suspicious microcalcifications, or architectural distortion in either breast is identified. Since the prior study, there has been no significant interval change. The computer aided diagnosis detects no significant abnormality. OVERALL FINAL ASSESSMENT: BI-RADS CATEGORY 1 : Negative Procedure Note Lalo Mcmillan MD - 02/09/2024 BILATERAL FULL-FIELD DIGITAL SCREENING MAMMOGRAM WITH CAD WITH 3D TOMOSYNTHESIS DATE: 02/09/2024 11:49 AM HISTORY: Routine screening. TECHNIQUE: Full-field digital craniocaudal and mediolateral oblique projections of both breasts were obtained. Low-dose full-field digital breast tomosynthesis examination was performed with 2D and 3D acquisitions. Examination is read in conjunction with computer aided detection. COMPARISON: 2022, 2021, 2020 BREAST COMPOSITION: There are scattered areas of fibroglandular density. FINDINGS: No new suspicious mass, suspicious microcalcifications, or architectural distortion in either breast is identified. Since the prior study, there has been no significant interval change. The computer aided diagnosis detects no significant abnormality. OVERALL FINAL ASSESSMENT: BI-RADS CATEGORY 1 : Negative IMPRESSION: No mammographic evidence of malignancy. RECOMMENDATIONS: Routine screening mammogram in one year. DICTATION LOCATION: [facility] Nickolas Boucher MD MAMMO ORDERABLES Final Resul t from Last 3 Months or Most Recently Relevant to Health Maintenance Insurance MEDICARE PART A AND B [facility] PPO Care Teams Bottle Assembler Relationship Specialty Start Date End Date Chadwick Coburn MD PCP - General 11/05/08
--- OUTSIDE RECORDS SUMMARY | 2024-08-10 13:31 | XMS_ITS | Encounter Summary ---
Author Organization [facility] Address [address] [place] [address] Care Team Providers Care Night Stocker Name Role Phone Chadwick Coburn MD Primary Care Provider +1- [phone] Encounter Details Date Type Department Care Team (Latest Contact Info) Description 10/07/2004 Outpatient Historical [facility] Boucher, Nickolas Alvarado MD [address] [facility] [address] [place] [address] SCREENING MAMM-MAILG NEOPL-OTHER (Primary Dx) Social History Tobacco Use Types Packs/Day Years Used Date Smoking Tobacco: Never Assessed Comments Unknown Sex and Gender Information Value Date Recorded Sex Assigned at Not on file 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
--- OUTSIDE RECORDS SUMMARY | 2024-08-10 13:31 | XMS_ITS | Clinical Summary ---
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 Gender Identity Not on file Sexual Orientation Not on file Obstetrics History Last Filed Vital Signs Vital Sign Reading [...] 01/10/2024 9:43 AM CDT Plan of Treatment Health Maintenance Due Date Last Done Comments Colon Cancer Screening-Colonoscopy 1955 Depression Screening 1955 Fall Risk Assessment 1955 Hepatitis C Screening 1955 Osteoporosis Screening-Bone Density Scan 1955 DTaP/Tdap/Td Vaccine (1 - Tdap) 1965 Hepatitis B Screening 1972 Pneumococcal vaccine 65+ (1 of 1 - PCV) 2004 Zoster Vaccine (1 of 2) 2004 Well Visit 65+ 10/28/2019 Covid-19 Vaccine (4 - 2023-2 5 season) 2023 12/30/2020, 05/02/2020, 04/10/2020 Influenza Vaccine (Season Ended) 2024 Breast Cancer Screening-Mammogram 02/08/2025 02/09/2024, 02/09/2024, 01/20/2023, Additional history exists Insurance MEDICARE COMMERCIAL GENERIC MEDICARE COMMERCIAL GENERIC Member Subscriber Plan / Payer (Ef fective 2019-Present) Name:Raysa Quan Relation to Subscriber:Self Name:Raysa Quan Payer ID:[id number] Type:COMMERCIAL Address: [place] [id number] Care Teams Adjunct Philosophy Faculty Relationship Specialty Start Date End Date Chadwick Coburn MD [address] [place] [address] PCP - General Family Medicine 10/26/19
--- OUTSIDE RECORDS SUMMARY | 2024-08-10 13:31 | XMS_ITS | Encounter Summary ---
Author Organization [facility] Address [address] [place] [address] Care Team Providers Care Art Therapist Name Role Phone Chadwick Coburn MD Primary Care Provider +1- [phone] Encounter Details Date Type Department Care Team (Latest Contact Info) Description 10/21/2006 Outpatient Historical [facility] Boucher, Nickolas Alvarado MD [address] [facility] [address] [place] [address] Other Screening Mammogram (Primary Dx) Social History Tobacco Use Types Packs/Day Years Used Date Smoking Tobacco: Never Assessed Comments Unknown Sex and Gender Information Value Date Recorded Sex Assigned at Not on file 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
--- OUTSIDE RECORDS SUMMARY | 2024-08-10 13:31 | XMS_ITS | Encounter Summary ---
Author Organization [facility] Address [address] [place] [address] Care Team Providers Care Spine Specialist Name Role Phone Chadwick Coburn MD Primary Care Provider +1- [phone] Encounter Details Date Type Department Care Team (Latest Contact Info) Description 10/01/2003 Outpatient Historical HIS [facility] Boucher, Nickolas Alvarado MD [address] [facility] [address] [place] [address] SCREENING MAMM-MAILG NEOPL-OTHER (Primary Dx) Social History Tobacco Use Types Packs/Day Years Used Date Smoking Tobacco: Never Assessed Comments Unknown Sex and Gender Information Value Date Recorded Sex Assigned at Not on file 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
--- OUTSIDE RECORDS SUMMARY | 2024-08-10 13:31 | XMS_ITS | Continuity of Care Document ---
Author Organization [facility] Address [address] [place] [address] [address] [place] [address] Phone Care Team Providers Care Lung Gun Operator Name Role Phone Martínez OD, Tacho Unavailable Unavailable Procedures Procedure Date Eye Exam & Treatment Refraction Advance Directives Directive Yes / No Effective Date File Name No Information Encounters Encounter Description Practice Location Reason(s) For Visit Diagnoses Date Provider Providers Copied on Encounter [facility], [address] [place] [address] [address], [place], [place], [id number], [place] tel:[phone] [facility] No Information [phone] Martínez OD Tacho. [address] , [address], [place], [address], [place]. tel:[phone] Family History Family Member Type Diagnosis Age At Onset No Information Payers Payer name Insurance type Covered libertarian ID Authoriza tion(s) No Information Social History Type Description Quantity Date Captured [...]
--- OUTSIDE RECORDS SUMMARY | 2024-08-10 13:31 | XMS_ITS | Encounter Summary ---
Author Organization [facility] Address [address] [place] [address] Care Team Providers Care Transfer Man Name Role Phone Chadwick Coburn MD Primary Care Provider +1- [phone] Encounter Details Date Type Department Care Team (Latest Contact Info) Description 10/14/2005 Outpatient Historical HIS [facility] Boucher, Nickolas Alvarado MD [address] [facility] [address] [place] [address] Abnormal Mammogram, Unspecified (Primary Dx) Social History Tobacco Use Types Packs/Day Years Used Date Smoking Tobacco: Never Assessed Comments Unknown Sex and Gender Information Value Date Recorded Sex Assigned at Not on file 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
--- OUTSIDE RECORDS SUMMARY | 2024-08-10 13:31 | XMS_ITS | Encounter Summary ---
Author Organization [facility] Address [address] [place] [address] Care Team Providers Care Laborer [employer] Name Role Phone Chadwick Coburn MD Primary Care Provider +1- [phone] Encounter Details Date Type Department Care Team (Latest Contact Info) Description 03/14/2007 Outpatient Historical [facility] Nickolas Boucher MD [address] [facility] [address] [place] [address] Special Screening for Osteoporosis Social History Tobacco Use Types Packs/Day Years Used Date Smoking Tobacco: Never Assessed Comments Unknown Sex and Gender Information Value Date Recorded Sex Assigned at Not on file 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
--- OUTSIDE RECORDS SUMMARY | 2024-08-10 13:31 | XMS_ITS | Patient Health Record ---
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 Role Phone Chadwick Tapia Primary Care Provider Unavail able Connie Portillo Unavailable [phone] Chadwick Markham Unavailable [phone] Kaylie Wang Unavailable [phone] Allergies Allergen (clinical drug ingredient) Drug/Non Drug Allergy documented on EMR Reaction Allergy Type Onset Date Status Linsinipril (uncoded) Chronic Cough Allergy Active Penicillin (uncoded) Mother told me I was Allergy Active Results Component Value Reference Range Notes Spirometry Reviewed date:09/25/2023 04:54:14 PM Interpretation:Abnormal Performing Lab: Notes/Report: Abnormal SpiroPreBronchodilator_FVC 2.4 SpiroPostBronchodilator_FEF25_75 2.89 SpiroPreBronchodilator_FEF25_75 1.9 SpiroPreBronchodilator_FEV1 1.91 SpiroPrecentPredictionPost_FEF25_75 132.6 SpiroPrecentPredictionPost_FEV1 73.7 SpiroPrecentPredictionPost_FEV1_OVER_FVC 116.3 SpiroPrecentPredictionPost_FVC 64.2 SpiroPrecentPredictionPre_FEF25_75 87.2 SpiroPrecentPredictionPre_FEV1 76.1 SpiroPrecentPredictionPre_FEV1_OVER_FVC 106 SpiroPrecentPredictionPre_FVC 72.7 SpiroPredicted_FEF25_75 2.18 SpiroPreBronchodilator_FEV1_OVER_FVC 79.56 SpiroPreBronchodilator_PEF 5.92 SpiroPostBronchodilator_FVC 2.12 SpiroPostBronchodilator_FEV1 1.85 SpiroPostBronchodilator_FEV1_OVER_FVC 87.33 SpiroPostBronchodilator_PEF 6.04 SpiroPredicted_FVC 3.3 SpiroPredicted_FEV1 2.51 SpiroPredicted_FEV1_OVER_FVC 75.07 SpiroPredicted_PEF 5.9 Spirometry Reviewed date:11/22/2023 12:07:24 PM Interpretation:Abnormal Performing Lab: Notes/Report: Abnormal SpiroPreBronchodilator_FVC 2.5 SpiroPostBronchodilator_FEF25_75 0 SpiroPreBronchodilator_FEF25_75 2.15 SpiroPreBronchodilator_FEV1 2.01 SpiroPrecentPredictionPost_FEF25_75 0 SpiroPrecentPredictionPost_FEV1 0 SpiroPrecentPredictionPost_FEV1_OVER_FVC 0 SpiroPrecentPredictionPost_FVC 0 SpiroPrecentPredictionPre_FEF25_75 100.9 SpiroPrecentPredictionPre_FEV1 81 SpiroPrecentPredictionPre_FEV1_OVER_FVC 107.4 SpiroPrecentPredictionPre_FVC 76.2 SpiroPredicted_FEF25_75 2.13 SpiroPreBronchodilator_FEV1_OVER_FVC 80.32 SpiroPreBronchodilator_PEF 6.08 SpiroPostBronchodilator_FVC 0 SpiroPostBronchodilator_FEV1 0 SpiroPostBronchodilator_FEV1_OVER_FVC 0 SpiroPostBronchodilator_PEF 0 SpiroPredicted_FVC 3.28 SpiroPredicted_FEV1 2.48 SpiroPredicted_FEV1_OVER_FVC 74.82 SpiroPredicted_PEF 5.88 Spirometry Reviewed date:12/30/2023 11:21:53 AM Interpretation:Abnormal Performing Lab: Notes/Report: Abnormal SpiroPreBronchodilator_FVC 2.35 SpiroPostBronchodilator_FEF25_75 0 SpiroPreBronchodilator_FEF25_75 2.71 SpiroPreBronchodilator_FEV1 1.96 SpiroPrecentPredictionPost_FEF25_75 0 SpiroPrecentPredictionPost_FEV1 0 SpiroPrecentPredictionPost_FEV1_OVER_FVC 0 SpiroPrecentPredictionPost_FVC 0 SpiroPrecentPredictionPre_FEF25_75 127.2 SpiroPrecentPredictionPre_FEV1 79 SpiroPrecentPredictionPre_FEV1_OVER_FVC 111.4 SpiroPrecentPredictionPre_FVC 71.6 SpiroPredicted_FEF25_75 2.13 SpiroPreBronchodilator_FEV1_OVER_FVC 83.32 SpiroPreBronchodilator_PEF 6.38 SpiroPostBronchodilator_FVC 0 SpiroPostBronchodilator_FEV1 0 SpiroPostBronchodilator_FEV1_OVER_FVC 0 SpiroPostBronchodilator_PEF 0 SpiroPredicted_FVC 3.28 SpiroPredicted_FEV1 2.48 SpiroPredicted_FEV1_OVER_FVC 74.82 SpiroPredicted_PEF 5.88 Reason For Referral No Information Medications Medication SIG (Take, Route, Frequency, Duration) Notes Start Date End Date Status Myrbetriq 50 MG 1 tablet Orally Once a day Not-Taking Myrbetriq Not-Taking SIT (Cluster) variable - see record per schedule subcutaneous per schedule for 999 days Active EPINEPHrine 0.3 MG/0.3ML as directed Inj ection once for 30 days 10/20/2023 Active Cetirizine HCl 10 MG 1 tablet Orally Onc e a day for 90 days Active AeroChamber MV - as directed for 30 days Any adult spacer Active Albuterol Sulfate HFA 108 (90 Base) MCG/ACT 1 puff as needed Inhalation every 4 hrs for 30 days Active Azelastine HCl 137 MCG/SPRAY 2 sprays in each nostril Nasally Twice a day for 90 days Active Fluticasone Propionate 50 MCG/ACT 1 spray in each nostril Nasally Twice a day for 90 days Active SIT (Traditional) variable - see record per schedule subcutaneous per schedule for 999 days Active Montelukast Sodium 10 MG 1 tablet Orally 30 minutes prior to SCIT for 30 days Active Famotidine 40 MG 1 tablet Orally 30 minutes prior to SCIT for 30 days Active Trelegy Ellipta 200-62.5-25 MCG/ACT 1 puff Inhalation Once a day for 90 days Active Cetirizine HCl 10 MG TAKE 1 TABLET BY [facility] ONCE DAILY for 90 Active Rosuvastatin Calcium 5 MG 1 tablet Orally Once a day Active Flonase Allergy Relief 50 MCG/ACT 1 spray in each nostril Nasally Once a day Active Rosuvastatin Calcium Active Immunizations Vaccine Route Administration Date Status Comme nts NOC Prevnar 13 Unknown 10/31/2017 Administered Portal I nformation NOC Tdap Unknown 12/28/2021 Administered Portal Charla nichols Social History Tobacco Use: Social History Observation Description Date Details (start date - stop date) Never Smoker NA - NA Sex Assigned At : Social History Observation Description Sex Assigned At Female Tobacco Control (Standard) Question Answer Notes Tobacco use: Nonsmoker AUDIT-C (Standard) Question Answer Notes Did you have a drink contain ing alcohol in the past year? Yes How often did you have a dri nk containing alcohol in the past year? Daily or almost daily (4 points) How many drinks did you have on a typical day when you were drinking in the past year? 1 or 2 drinks (0 point) How often did you have six o r more drinks on one occasion in the past year? Never (0 point) Points 4 Interpretation Positive Problems Problem Type SNOMED Code ICD Code Onset Dates Problem Status W/U Status Risk Notes Problem Allergy status t o penicillin (Z88.0) Active confirmed Problem Chronic allergic conjunctivitis (55106805) Other chronic allergic conjunctivitis (H10.45) Active confirmed Problem Allergic rhinitis caused by pollen (disorder) (11161781) Allergic rhinitis due to pollen (J30.1) Active confirmed Problem Allergic rhinitis (99661729) Other allergic rhinitis (J30.89) Active confirmed Problem Adverse reaction caused by drug (83592525) Adverse effect of other drugs, medicaments and biological substances, initial encounter (T50.995A) Active confirmed Problem Allergic rhinitis caused by animal hair and dander (768368278491464) Allergic rhinitis due to animal (cat) (dog) hair and dander (J30.81) Active confirmed Problem Chronic cough (92981047) Chronic cough (R05.3) Active confirmed Vital Signs Blood pressure diastolic 88 mm Hg 07/18/2024 Oximetry 95 % 07/18/2024 Height 67 in 07/18/2024 Blood pressure systolic 131 mm Hg 07/18/2024 Weight 183.2 lbs 07/18/2024 BMI 28.69 kg/m2 07/18/2024 Encounters Encounter Location Date Provider Diagnosis [address] [address] 09/20/2023 Connie Portillo Allergic rhinitis du e to pollen J30.1 ; Chronic cough R05.3 ; Allergic rhinitis due to animal (cat) (dog) hair and dander J30.81 ; Other allergic rhinitis J30.89 ; Other chronic allergic conjunctivitis H10.45 ; Allergy status to penicillin Z88.0 and Elevated blood-pressure reading, without diagnosis of hypertension R03.[address] [address] 10/18/2023 Connie Portillo Allergic rhinitis du e to pollen J30.1 ; Chronic cough R05.3 ; Allergic rhinitis due to animal (cat) (dog) hair and dander J30.81 ; Other allergic rhinitis J30.89 ; Other chronic allergic conjunctivitis H10.45 ; Allergy status to penicillin Z88.0 and Elevated blood-pressure reading, without diagnosis of hypertension R03.[address] [address] 11/11/2023 Chadwick Markham Allergic rhinitis du e to pollen J30.1 ; Allergic rhinitis due to animal (cat) (dog) hair and dander J30.81 ; Other allergic rhinitis J30.89 and Other chronic allergic conjunctivitis H10.[address] [address] 11/18/2023 Chadwick Markham Allergic rhinitis du e to pollen J30.1 ; Allergic rhinitis due to animal (cat) (dog) hair and dander J30.81 ; Other allergic rhinitis J30.89 and Other chronic allergic conjunctivitis H10.[address] [address] 11/22/2023 Connie Portillo Allergic rhinitis du e to pollen J30.1 ; Chronic cough R05.3 ; Allergic rhinitis due to animal (cat) (dog) hair and dander J30.81 ; Other allergic rhinitis J30.89 ; Other chronic allergic conjunctivitis H10.45 ; Allergy status to penicillin Z88.0 and Elevated blood-pressure reading, without diagnosis of hypertension R03.0 [facility] [address] [place] [phone] 11/25/2023 Chadwick Markham Allergic rhinitis du e to pollen J30.1 ; Allergic rhinitis due to animal (cat) (dog) hair and dander J30.81 ; Other allergic rhinitis J30.89 and Other chronic allergic conjunctivitis H10.[address] [address] 12/02/2023 Chadwick Markham Allergic rhinitis du e to pollen J30.1 ; Allergic rhinitis due to animal (cat) (dog) hair and dander J30.81 ; Other allergic rhinitis J30.89 and Other chronic allergic conjunctivitis H10.[address] [address] 12/08/2023 Chadwick Markham Allergic rhinitis du e to pollen J30.1 ; Allergic rhinitis due to animal (cat) (dog) hair and dander J30.81 ; Other allergic rhinitis J30.89 and Other chronic allergic conjunctivitis H10.[address] [address] 12/15/2023 Kaylie Wang Chronic cough R05.3 ; Adverse effect of other drugs, medicaments and biological substances, initial encounter T50.995A ; Allergic rhinitis due to pollen J30.1 ; Allergic rhinitis due to animal (cat) (dog) hair and dander J30.81 ; Other allergic rhinitis J30.89 ; Other chronic allergic conjunctivitis H10.45 ; Allergy status to penicillin Z88.0 and Elevated blood-pressure reading, without diagnosis of hypertension R03.[address] [address] 12/22/2023 Chadwick Markham Allergic rhinitis du e to pollen J30.1 ; Allergic rhinitis due to animal (cat) (dog) hair and dander J30.81 ; Other allergic rhinitis J30.89 and Other chronic allergic conjunctivitis H10.[address] [address] 12/27/2023 Connie Portillo Chronic cough R05.3 ; 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 ; Allergic rhinitis due to pollen J30.1 ; Allergic rhinitis due to animal (cat) (dog) hair and dander J30.81 ; Other allergic rhinitis J30.89 ; Other chronic allergic conjunctivitis H10.45 ; Allergy status to penicillin Z88.0 and Elevated blood-pressure reading, without diagnosis of hypertension R03.0 [facility] [address] [place] [address] [employer] [address] [address] 01/03/2024 Chadwick Markham Allergic rhinitis du e to pollen J30.1 ; Allergic rhinitis due to animal (cat) (dog) hair and dander J30.81 ; Other allergic rhinitis J30.89 and Other chronic allergic conjunctivitis H10.45 [facility] [address] [place] [phone] 01/11/2024 Chadwick Markham Allergic rhinitis du e to pollen J30.1 ; Allergic rhinitis due to animal (cat) (dog) hair and dander J30.81 ; Other allergic rhinitis J30.89 and Other chronic allergic conjunctivitis H10.45 [facility] [address] [place] [address] [employer] [address] [address] 01/18/2024 Chadwick Markham Allergic rhinitis du e to pollen J30.1 ; Allergic rhinitis due to animal (cat) (dog) hair and dander J30.81 ; Other allergic rhinitis J30.89 and Other chronic allergic conjunctivitis H10.[address] [address] 01/25/2024 Chadwick Markham Allergic rhinitis du e to pollen J30.1 ; Allergic rhinitis due to animal (cat) (dog) hair and dander J30.81 ; Other allergic rhinitis J30.89 and Other chronic allergic conjunctivitis H10.[address] [address] 01/31/2024 Chadwick Markham Cough, unspecified R05.9 ; Shortness of breath R06.02 ; Wheezing R06.2 and Abnormal results of pulmonary function studies R94.[address] [address] 02/01/2024 Chadwick Markham Allergic rhinitis du e to pollen J30.1 ; Allergic rhinitis due to animal (cat) (dog) hair and dander J30.81 ; Other allergic rhinitis J30.89 and Other chronic allergic conjunctivitis H10.45 [facility] [address] [place] [address] 02/07/2024 Chadwick Markham Allergic rhinitis du e to pollen J30.1 ; Allergic rhinitis due to animal (cat) (dog) hair and dander J30.81 ; Other allergic rhinitis J30.89 and Other chronic allergic conjunctivitis H10.45 [facility] [address] [place] [address] 02/15/2024 Chadwick Rashi Allergic rhinitis du e to pollen J30.1 ; Allergic rhinitis due to animal (cat) (dog) hair and dander J30.81 ; Other allergic rhinitis J30.89 and Other chronic allergic conjunctivitis H10.[address] [address] 02/22/2024 Chadwick Rashi Allergic rhinitis du e to pollen J30.1 ; Allergic rhinitis due to animal (cat) (dog) hair and dander J30.81 ; Other allergic rhinitis J30.89 and Other chronic allergic conjunctivitis H10.45 [facility] [address] [place] [address] 02/29/2024 Chadwick Rashi Allergic rhinitis du e to pollen J30.1 ; Allergic rhinitis due to animal (cat) (dog) hair and dander J30.81 ; Other allergic rhinitis J30.89 and Other chronic allergic conjunctivitis H10.[address] [address] 03/06/2024 Chadwicknallely Markham Allergic rhinitis du e to pollen J30.1 ; Allergic rhinitis due to animal (cat) (dog) hair and dander J30.81 ; Other allergic rhinitis J30.89 and Other chronic allergic conjunctivitis H10.[address] [address] 03/21/2024 Connie Portillo Chronic cough R05.3 ; 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 ; Allergic rhinitis due to pollen J30.1 ; Allergic rhinitis due to animal (cat) (dog) hair and dander J30.81 ; Other allergic rhinitis J30.89 ; Other chronic allergic conjunctivitis H10.45 ; Allergy status to penicillin Z88.0 and Elevated blood-pressure reading, without diagnosis of hypertension R03.0 [facility] [address] [place] [address] [employer] [address] [address] 04/05/2024 Chadwick Markham Allergic rhinitis du e to pollen J30.1 ; Allergic rhinitis due to animal (cat) (dog) hair and dander J30.81 ; Other allergic rhinitis J30.89 and Other chronic allergic conjunctivitis H10.45 [facility] [address] [place] [address] 04/18/2024 Chadwick Markham Allergic rhinitis du e to pollen J30.1 ; Allergic rhinitis due to animal (cat) (dog) hair and dander J30.81 ; Other allergic rhinitis J30.89 and Other chronic allergic conjunctivitis H10.45 [facility] [address] [place] [address] [employer] [address] [address] 05/02/2024 Chadwick Markham Allergic rhinitis du e to pollen J30.1 ; Allergic rhinitis due to animal (cat) (dog) hair and dander J30.81 ; Other allergic rhinitis J30.89 and Other chronic allergic conjunctivitis H10.45 [facility] [address] [place] [address] [employer] [address] [address] 05/30/2024 Chadwick Markham Allergic rhinitis du e to pollen J30.1 ; Allergic rhinitis due to animal (cat) (dog) hair and dander J30.81 ; Other allergic rhinitis J30.89 and Other chronic allergic conjunctivitis H10.45 [facility] [address] [place] [address] [employer] [address] [address] 06/06/2024 Chadwick Markham Allergic rhinitis du e to pollen J30.1 ; Allergic rhinitis due to animal (cat) (dog) hair and dander J30.81 ; Other allergic rhinitis J30.89 and Other chronic allergic conjunctivitis H10.45 [facility] [address] [place] [address] [employer] [address] [address] 06/13/2024 Chadwick Markham Allergic rhinitis du e to pollen J30.1 ; Allergic rhinitis due to animal (cat) (dog) hair and dander J30.81 ; Other allergic rhinitis J30.89 and Other chronic allergic conjunctivitis H10.45 [facility] [address] [place] [address] [employer] [address] [address] 07/11/2024 Chadwick Markham Allergic rhinitis du e to pollen J30.1 ; Allergic rhinitis due to animal (cat) (dog) hair and dander J30.81 ; Other allergic rhinitis J30.89 and Other chronic allergic conjunctivitis H10.45 [facility] [address] [place] [address] [employer] [address] [address] 07/18/2024 Connie Portillo Chronic cough R05.3 ; 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 ; Allergic rhinitis due to pollen J30.1 ; Allergic rhinitis due to animal (cat) (dog) hair and dander J30.81 ; Other allergic rhinitis J30.89 ; Other chronic allergic conjunctivitis H10.45 ; Allergy status to penicillin Z88.0 and Elevated blood-pressure reading, without diagnosis of hypertension R03.0 [facility] [address] [place] [address] 08/10/2024 Chadwick Markham Allergic rhinitis du e to pollen J30.1 ; Allergic rhinitis due to animal (cat) (dog) hair and dander J30.81 ; Other allergic rhinitis J30.89 and Other chronic allergic conjunctivitis H10.[address] [address] 09/23/2023 Connie Portillo Chronic cough R05.[address] [address] 09/30/2023 Connie Portillo [address] [employer] [address] [address] 10/06/2023 Connie Portillo Chronic cough R05.[address] [address] 10/19/2023 Connie Portillo [address] [address] 12/15/2023 Connie Portillo [address] [address] 12/16/2023 Connie Portillo Allergic rhinitis du e to pollen J30.[address] [address] 12/16/2023 Connie Portillo Allergic rhinitis du e to pollen J30.[address] [address] 02/08/2024 Connie Portillo [address] [address] 03/21/2024 Connie Portillo [address] [address] 04/19/2024 Connie Portillo [address] [address] 10/25/2023 Connie Portillo [address] [address] 11/17/2023 Connie Portillo Chronic cough R05.[address] [address] 02/09/2024 Connie Portillo Assessments Encounter Date Diagnosis (ICD Code) Assessment Notes Treatment Notes Treatment Clinical Notes Section Notes 09/20/2023 Allergic rhinitis due to pollen (ICD-10 - J30.1) Given the history and symptoms, skin testing was performed to common aeroallergens to determine atopic status. Raysa clearly suffers from atopic disease based upon our skin testing and clinical history. Accordingly, we have introduced a new, aggressive medication regimen, discussed nasal washes and allergy-specific avoidance measures. We also discussed adjunctive therapies including subcutaneous, specific allergen immunotherapy as relates to the treatment and prevention of atopic disease. She is currently considering the risks, benefits and alternatives to this care. Risks: bleeding, infection, allergic reaction, anaphylaxis; Benefits: reduced need for medications, improved symptoms, disease modification. Alternatives: watch/wait, change medication regimen, improve allergy avoidance measures. Follow-up in 1 month for interval evaluation and management 09/20/2023 Chronic cough (ICD-10 - R05.3) Raysa presents with complaints of almost daily cough that has been occurring for > one year. She has been seen by her PCP and UC multiple times, treated with steroids, antibiotics and Tessalon Pearls. She feels these interventions were minimally beneficial, as her cough always returned. Her symptoms worsen at night. She denies shortness of breath or wheezing. She was recently started on Pulmicort, which she does feel is somewhat beneficial. She has never been hospitalized due to lower airway symptoms. ACT si 13. - Spirometry obtained today that showed reduced FVC, however TLC not measured, normal FEV1 and FEV%. S/p JOSE C did not show reversibility. Variations in technique were alos noted, making interpretation difficult. - Due to ongoing symptoms, will stop Pulmicort and start trial of ICS/LABA with AeroChamber. Proper demonstration provided today. She is aware to rinse her mouth after use. - Will start JOSE C as-needed per AAP, which was formulated and discussed. - Considerations for cough include RAD vs asthma vs GERD vs other. Raysa denies history of GERD, however. - Treat atopic disease aggressively, see plan below. - Consider consult with pulmonology if symptoms do not improve. - Follow-up in 4 weeks for repeat spirometry and further evaluation and management 09/23/2023 Chronic cough (ICD-10 - R05.3) 10/06/2023 Chronic cough (ICD-10 - R05.3) 10/18/2023 Allergic rhinitis due to pollen (ICD-10 - J30.1) Raysa clearly suffers from atopic disease based upon our skin testing and clinical history. Accordingly, we have encouraged her medication regimen, discussed nasal washes and allergy-specific avoidance measures. We also discussed adjunctive therapies including subcutaneous, specific allergen immunotherapy as relates to the treatment and prevention of atopic disease. She is currently considering the risks, benefits and alternatives to this care. Risks: bleeding, infection, allergic reaction, anaphylaxis; Benefits: reduced need for medications, improved symptoms, disease modification. Alternatives: watch/wait, change medication regimen, improve allergy avoidance measures. - Raysa is interested in SCIT via rapid desensitization. She is interested in insurance investigation, consent for signed today. - Follow-up in 4 weeks as above 10/18/2023 Chronic cough (ICD-10 - R05.3) Raysa presented to her initial visit with complaints of almost daily cough that has been occurring for > one year. She has been seen by her PCP and UC multiple times, treated with steroids, antibiotics and Tessalon Pearls. She feels these interventions were minimally beneficial, as her cough always returned. Her symptoms worsen at night. She denies shortness of breath or wheezing. She was started on Pulmicort, which she does feel is somewhat beneficial. She has never been hospitalized due to lower airway symptoms. Discussed step-up to ICS/LABA, however Raysa was unable to fill this due to insurance issues. - Spirometry obtained last visit that showed reduced FVC, however TLC not measured, normal FEV1 and FEV%. S/p JOSE C did not show reversibility. Variations in technique were also noted, making interpretation difficult. - Raysa feels her symptoms have improved significantly with aggressive treatment of atopic disease, see plan below. - Due to ongoing symptoms, will trial low-dose Trelegy, as samples are available. Proper demonstration provided today. She is aware to rinse her mouth after use. - Continue JOSE C as-needed per AAP, which was formulated and discussed last visit. - Considerations for cough include RAD vs asthma vs GERD vs other. Raysa denies history of GERD, however. - Consider consult with pulmonology if symptoms do not improve. - Follow-up in 4 weeks for repeat spirometry and further evaluation and management 11/11/2023 Allergic rhinitis due to pollen (ICD-10 - J30.1) 11/17/2023 Chronic cough (ICD-10 - R05.3) 11/18/2023 Allergic rhinitis due to pollen (ICD-10 - J30.1) 11/22/2023 Allergic rhinitis due to pollen (ICD-10 - J30.1) Raysa clearly suffers from atopic disease based upon our skin testing and clinical history. Accordingly, we have encouraged her medication regimen, discussed nasal washes and allergy-specific avoidance measures. We also discussed adjunctive therapies including subcutaneous, specific allergen immunotherapy as relates to the treatment and prevention of atopic disease. - Raysa recently started SCIT. She denies large local or systemic reactions. - Raysa was not due for dosing today. - Follow-up as scheduled for SCIT and in 4 weeks for further evaluation and management 11/22/2023 Chronic cough (ICD-10 - R05.3) Raysa presented to her initial visit with complaints of almost daily cough that has been occurring for > one year. She has been seen by her PCP and UC multiple times, treated with steroids, antibiotics and Tessalon Pearls. She feels these interventions were minimally beneficial, as her cough always returned. Her symptoms worsen at night. She denies shortness of breath or wheezing. She was started on Pulmicort, which she did feel was somewhat beneficial. Then stepped-up to low-dose Trelegy, which again Raysa feels has been beneficial, however reports coughing fit while on walks.She has never been hospitalized due to lower airway symptoms. - Spirometry obtained last visit that showed reduced FVC, however TLC not measured, normal FEV1 and FEV%. S/p JOSE C did not show reversibility. Variations in technique were also noted, making interpretation difficult. Repeat spirometry today again showed reduced FVC, however TLC not measured, normal FEV1 and FEV%. Inspiratory blunting noted concerning for VCD. 3% and 100 cc increase noted in FVC compared to last report. - Raysa feels her symptoms have improved significantly with aggressive treatment of atopic disease, see plan below. - Due to ongoing symptoms, will step up to high-dose Trelegy. She is aware to rinse her mouth after use. - Continue JOSE C as-needed per AAP, which was formulated and discussed last visit. - Considerations for cough include RAD vs asthma vs VCD vs GERD vs other. Raysa denies history of GERD, however. - Inspiratory blunting noted on spirometry today concerning for VCD. Raysa was given an educational handout with exercises for VCD. Consider speech therapy. - Discussed consult with pulmonology, provided names of local pulmonologists. Raysa in agreement. - Follow-up in 4 weeks for repeat spirometry and further evaluation and management 11/25/2023 Allergic rhinitis due to pollen (ICD-10 - J30.1) 12/02/2023 Allergic rhinitis due to pollen (ICD-10 - J30.1) 12/08/2023 Allergic rhinitis due to pollen (ICD-10 - J30.1) 12/15/2023 Chronic cough (ICD-10 - R05.3) Raysa presented to her initial visit with complaints of almost daily cough that has been occurring for > one year. She has been seen by her PCP and UC multiple times, treated with steroids, antibiotics and Tessalon Pearls. She feels these interventions were minimally beneficial, as her cough always returned. Her symptoms worsen at night. She denies shortness of breath or wheezing. She was started on Pulmicort, which she did feel was somewhat beneficial. Then stepped-up to low-dose Trelegy, which again Raysa feels has been beneficial, however reports coughing fit while on walks.She has never been hospitalized due to lower airway symptoms. - Spirometry obtained last visit that showed reduced FVC, however TLC not measured, normal FEV1 and FEV%. S/p JOSE C did not show reversibility. Variations in technique were also noted, making interpretation difficult. Repeat spirometry again showed reduced FVC, however TLC not measured, normal FEV1 and FEV%. Inspiratory blunting noted concerning for VCD. 3% and 100 cc increase noted in FVC compared to last report. - Raysa feels her symptoms have improved significantly with aggressive treatment of atopic disease, see plan below. - Due to ongoing symptoms, Trelegy incerased to high-dose at last visti. She is aware to rinse her mouth after use. - Continue JOSE C as-needed per AAP, which was formulated and discussed prior visit. - Considerations for cough include RAD vs asthma vs VCD vs GERD vs other. Raysa denies history of GERD, however. - Inspiratory blunting noted on spirometry concerning for VCD. Raysa was given an educational handout with exercises for VCD. Consider speech therapy. - Discussed consult with pulmonology, provided names of local pulmonologists. Raysa in agreement. - Follow-up in 2 weeks for repeat spirometry and further evaluation and management 12/16/2023 Allergic rhinitis due to pollen (ICD-10 - J30.1) 12/16/2023 Allergic rhinitis due to pollen (ICD-10 - J30.1) 12/15/2023 Adverse effect of other drugs, medicaments and biological substances, initial encounter (ICD-10 - T50.995A) Patient reported itchy throat, hoarse voice and felt something was on left side of throat 30 minutes after receiving Cluster 6 Dose 2 1:2 0.2ml. She was immediately brought to an exam room and given additional antihistamines and OCS. Bilateral large locals noted in addition to rhinorrhea. Lungs were CTA. No evidence of urticaria noted. No other IgE-mediated symptoms. Vital signs remained stable throughout visit. She was monitor for over 1.5 hours before she was discharged in stable condition with AIE on hand. See procedure section for full details. - Will increase premediction from Zyrtec to triple premedication. Orders sent out for Pepcid and Singulair. - Discussed with SONYA Portillo. Will plan to reduce dose and transition to Traditional SCIT next week. Patient is in agreement. Patient received a cumulative dose of 1:2 0.34ml (0.14 and 0.2ml). Will plan to decrease to 1:2 0.1ml and titrate weekly. Will monitor closely. 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 States she will be speaking normally, her voice will go in and out, then return to normal. Symptoms started after she lost her voice during an illness in August. - Trialed vocal cord exercises, however Raysa reports this has not been beneficial. - Discussed consult with ENT, Raysa voiced agreement. Plans to contact local ENTs. She will contact the office if a referral is needed 12/27/2023 Chronic cough (ICD-10 - R05.3) Raysa presented to her initial visit with complaints of almost daily cough that has been occurring for > one year. She has been seen by her PCP and UC multiple times, treated with steroids, antibiotics and Tessalon Pearls. She feels these interventions were minimally beneficial, as her cough always returned. Her symptoms worsen at night. She denies shortness of breath or wheezing. She was started on Pulmicort, which she did feel was somewhat beneficial. Then stepped-up to low-dose Trelegy and eventually high-dose Trelegy. Raysa returns today reporting almost full resolution of cough. She has never been hospitalized due to lower airway symptoms. - Spirometry obtained at her initial visit that showed reduced FVC, however TLC not measured, normal FEV1 and FEV%. S/p JOSE C did not show reversibility. Variations in technique were also noted, making interpretation difficult. Repeat spirometry again showed reduced FVC, however TLC not measured, normal FEV1 and FEV%. Inspiratory blunting noted concerning for VCD. - Raysa feels her symptoms have improved significantly with aggressive treatment of atopic disease, see plan below. - Due to ongoing symptoms, Continue Trelegy daily. She is aware to rinse her mouth after use. - Continue JOSE C as-needed per AAP, which was formulated and discussed prior visit. - Considerations for cough include RAD vs asthma vs VCD vs GERD vs other. Raysa denies history of GERD, however. - Inspiratory blunting noted on spirometry concerning for VCD. Raysa was given an educational handout with exercises for VCD. Consider speech therapy. She also reports voice hoarseness, see plan below. - Last visit discussed consult with pulmonology, provided names of local pulmonologists. Raysa in agreement, however has not yet scheduled an appointment. While waiting for evaluation discussed PFT with [facility]. Raysa is interested, name added to list. - Follow-up in 2-3 months for further evaluation and management 01/03/2024 Allergic rhinitis due to pollen (ICD-10 - J30.1) 01/11/2024 Allergic rhinitis due to pollen (ICD-10 - J30.1) 01/18/2024 Allergic rhinitis due to pollen (ICD-10 - J30.1) 01/25/2024 Allergic rhinitis due to pollen (ICD-10 - J30.1) 01/31/2024 Shortness of breath (ICD-10 - R06.02) 01/31/2024 Cough, unspecified (ICD-10 - R05.9) 02/01/2024 Allergic rhinitis due to pollen (ICD-10 - J30.1) 02/07/2024 Allergic rhinitis due to pollen (ICD-10 - J30.1) 02/15/2024 Allergic rhinitis due to pollen (ICD-10 - J30.1) 02/22/2024 Allergic rhinitis due to pollen (ICD-10 - J30.1) 02/29/2024 Allergic rhinitis due to pollen (ICD-10 - J30.1) 03/06/2024 Allergic rhinitis due to pollen (ICD-10 - J30.1) 03/21/2024 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 States she will be speaking normally, her voice will go in and out, then return to normal. Symptoms started after she lost her voice during an illness in August. - Trialed vocal cord exercises, however Raysa reports this was not beneficial. - Discussed consult with ENT, who referred Raysa to speech therapy. She reports going to several sessions, now completing exercises at home. She feels this has been beneficial. - Consider returning to ENT if symptoms recur 03/21/2024 Chronic cough (ICD-10 - R05.3) Raysa presented to her initial visit with complaints of almost daily cough that has been occurring for > one year. She has been seen by her PCP and UC multiple times, treated with steroids, antibiotics and Tessalon Pearls. She feels these interventions were minimally beneficial, as her cough always returned. Her symptoms worsen at night. She denies shortness of breath or wheezing. She was started on Pulmicort, which she did feel was somewhat beneficial. Then stepped-up to low-dose Trelegy and eventually high-dose Trelegy. Raysa returns today again reporting almost full resolution of cough. She has never been hospitalized due to lower airway symptoms. - Spirometry obtained at her initial visit that showed reduced FVC, however TLC not measured, normal FEV1 and FEV%. S/p JOSE C did not show reversibility. Variations in technique were also noted, making interpretation difficult. Repeat spirometry again showed reduced FVC, however TLC not measured, normal FEV1 and FEV%. Inspiratory blunting noted concerning for VCD. - Raysa feels her symptoms have improved significantly with aggressive treatment of atopic disease, see plan below. - Due to ongoing symptoms, Continue Trelegy daily. She is aware to rinse her mouth after use. - Continue JOSE C as-needed per AAP, which was formulated and discussed prior visit. - Considerations for cough include RAD vs asthma vs VCD vs GERD vs other. Raysa denies history of GERD, however. - Inspiratory blunting noted on spirometry concerning for VCD. Raysa was given an educational handout with exercises for VCD. See plan below. - We previously discussed consult with pulmonology, she has since established care with DELIVERY STOCK CLERK Luis Alberto Sneed. She reports completing a PFT at his office, was then told she didn't need to come back. No records to review, they have been requested. 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 States she will be speaking normally, her voice will go in and out, then return to normal. Symptoms started after she lost her voice during an illness in August. - Trialed vocal cord exercises, however Raysa reports this was not beneficial. - Discussed consult with ENT, who referred Raysa to speech therapy. She reports going to several sessions, now completing exercises at home. She feels this has been beneficial. - Consider returning to ENT if symptoms recur 07/18/2024 Chronic cough (ICD-10 - R05.3) Raysa presented to her initial visit with complaints of almost daily cough that has been occurring for > one year. She has been seen by her PCP and UC multiple times, treated with steroids, antibiotics and Tessalon Pearls. She feels these interventions were minimally beneficial, as her cough always returned. Her symptoms worsen at night. She denies shortness of breath or wheezing. She was started on Pulmicort, which she did feel was somewhat beneficial. Then stepped-up to low-dose Trelegy and eventually high-dose Trelegy. Raysa returns today again reporting almost full resolution of cough. She has never been hospitalized due to lower airway symptoms. - Spirometry obtained at her initial visit that showed reduced FVC, however TLC not measured, normal FEV1 and FEV%. S/p JOSE C did not show reversibility. Variations in technique were also noted, making interpretation difficult. Repeat spirometry again showed reduced FVC, however TLC not measured, normal FEV1 and FEV%. Inspiratory blunting noted concerning for VCD. - Raysa feels her symptoms have improved significantly with aggressive treatment of atopic disease, see plan below. - Due to ongoing symptoms, Continue Trelegy daily. She is aware to rinse her mouth after use. - Continue JOSE C as-needed per AAP, which was formulated and discussed prior visit. - Considerations for cough include RAD vs asthma vs VCD vs GERD vs other. Raysa denies history of GERD, however. - Inspiratory blunting noted on spirometry concerning for VCD. Raysa was given an educational handout with exercises for VCD. See plan below. - We previously discussed consult with pulmonology, she has since established care with DELIVERY STOCK CLERK Luis Alberto Sneed. She reports completing a PFT at his office, was then told she didn't need to come back. No records to review, they have been requested. - Follow-up in 3-4 months for further evaluation and management 08/10/2024 Allergic rhinitis due to pollen (ICD-10 - J30.1) 08/10/2024 Allergic rhinitis due to animal (cat) (dog) hair and dander (ICD-10 - J30.81) 07/18/2024 Allergic rhinitis due to pollen (ICD-10 - J30.1) Raysa clearly suffers from atopic disease based upon our skin testing and clinical history. Accordingly, we have encouraged her medication regimen, discussed nasal washes and allergy-specific avoidance measures. - Raysa continues on SCIT. At a prior visit she reported itchy throat sensation 20 minutes after dose 2 of Cluster 6. Due to this, started triple premedication and reduced dose. She reports LLR two months ago, however received dosing last month without issue. Not due for dosing today. - Continue medication regimen as above. - Follow-up as scheduled for SCIT and in 3-4 months for further evaluation and management 07/11/2024 Allergic rhinitis due to animal (cat) (dog) hair and dander (ICD-10 - J30.81) 06/13/2024 Allergic rhinitis due to animal (cat) (dog) hair and dander (ICD-10 - J30.81) 06/06/2024 Allergic rhinitis due to animal (cat) (dog) hair and dander (ICD-10 - J30.81) 05/30/2024 Allergic rhinitis due to animal (cat) (dog) hair and dander (ICD-10 - J30.81) 05/02/2024 Allergic rhinitis due to animal (cat) (dog) hair and dander (ICD-10 - J30.81) 04/18/2024 Allergic rhinitis due to animal (cat) (dog) hair and dander (ICD-10 - J30.81) 04/05/2024 Allergic rhinitis due to animal (cat) (dog) hair and dander (ICD-10 - J30.81) 03/06/2024 Allergic rhinitis due to animal (cat) (dog) hair and dander (ICD-10 - J30.81) 03/21/2024 Allergic rhinitis due to pollen (ICD-10 - J30.1) Raysa clearly suffers from atopic disease based upon our skin testing and clinical history. Accordingly, we have encouraged her medication regimen, discussed nasal washes and allergy-specific avoidance measures. - Raysa continues on SCIT. At a prior visit she reported itchy throat sensation 20 minutes after dose 2 of Cluster 6. Due to this, started triple premedication and reduced dose. She will finish build-up via traditional schedule. Raysa tolerated dosing today without issue, she is near reaching monthly dosing. - Continue medication regimen as above. - Follow-up as scheduled for SCIT and in 3-4 months for further evaluation and management 02/29/2024 Allergic rhinitis due to animal (cat) (dog) hair and dander (ICD-10 - J30.81) 02/22/2024 Allergic rhinitis due to animal (cat) (dog) hair and dander (ICD-10 - J30.81) 02/15/2024 Allergic rhinitis due to animal (cat) (dog) hair and dander (ICD-10 - J30.81) 02/07/2024 Allergic rhinitis due to animal (cat) (dog) hair and dander (ICD-10 - J30.81) 02/01/2024 Allergic rhinitis due to animal (cat) (dog) hair and dander (ICD-10 - J30.81) 01/31/2024 Wheezing (ICD-10 - R06.2) 01/25/2024 Allergic rhinitis due to animal (cat) (dog) hair and dander (ICD-10 - J30.81) 01/18/2024 Allergic rhinitis due to animal (cat) (dog) hair and dander (ICD-10 - J30.81) 01/11/2024 Allergic rhinitis due to animal (cat) (dog) hair and dander (ICD-10 - J30.81) 01/03/2024 Allergic rhinitis due to animal (cat) (dog) hair and dander (ICD-10 - J30.81) 12/27/2023 Allergic rhinitis due to pollen (ICD-10 - J30.1) Raysa clearly suffers from atopic disease based upon our skin testing and clinical history. Accordingly, we have encouraged her medication regimen, discussed nasal washes and allergy-specific avoidance measures. - Raysa recently started SCIT. At a prior visit she reported itchy throat sensation 20 minutes after dose 2 of Cluster 6. Due to this, started triple premedication and reduced dose. She will finish build-up via traditional schedule. Raysa tolerated dosing today without issue. - Continue medication regimen as above. - Follow-up as scheduled for SCIT and in 2-3 months for further evaluation and management 12/22/2023 Allergic rhinitis due to animal (cat) (dog) hair and dander (ICD-10 - J30.81) 12/08/2023 Allergic rhinitis due to animal (cat) (dog) hair and dander (ICD-10 - J30.81) 12/02/2023 Allergic rhinitis due to animal (cat) (dog) hair and dander (ICD-10 - J30.81) 12/15/2023 Allergic rhinitis due to pollen (ICD-10 - J30.1) Raysa clearly suffers from atopic disease based upon our skin testing and clinical history. Accordingly, we have encouraged her medication regimen, discussed nasal washes and allergy-specific avoidance measures. We also discussed adjunctive therapies including subcutaneous, specific allergen immunotherapy as relates to the treatment and prevention of atopic disease. - Raysa recently started SCIT. She denies large local or systemic reactions. - Reported itchy throat sensation 20 minutes after dose 2 of Cluster 6. Plan to decrease dose and transition to traditional schedule. Triple premedication to be started as well. See above. - Follow-up as scheduled for SCIT and in 2 weeks for further evaluation and management 11/25/2023 Allergic rhinitis due to animal (cat) (dog) hair and dander (ICD-10 - J30.81) 11/22/2023 Allergic rhinitis due to animal (cat) (dog) hair and dander (ICD-10 - J30.81) Follow allergen avoidance, meds and continue SCIT as an adjunctive treatment to current regimen 11/18/2023 Allergic rhinitis due to animal (cat) (dog) hair and dander (ICD-10 - J30.81) 10/18/2023 Allergic rhinitis due to animal (cat) (dog) hair and dander (ICD-10 - J30.81) Follow allergen avoidance, meds and consider SCIT as an adjunctive treatment to current regimen 11/11/2023 Allergic rhinitis due to animal (cat) (dog) hair and dander (ICD-10 - J30.81) 09/20/2023 Allergic rhinitis due to animal (cat) (dog) hair and dander (ICD-10 - J30.81) Follow allergen avoidance, meds and consider SCIT as an adjunctive treatment to current regimen 10/18/2023 Other allergic rhinitis (ICD-10 - J30.89) Follow allergen avoidance, meds and consider SCIT as an adjunctive treatment to current regimen 11/11/2023 Other allergic rhinitis (ICD-10 - J30.89) 09/20/2023 Other allergic rhinitis (ICD-10 - J30.89) Follow allergen avoidance, meds and consider SCIT as an adjunctive treatment to current regimen 11/18/2023 Other allergic rhinitis (ICD-10 - J30.89) 11/22/2023 Other allergic rhinitis (ICD-10 - J30.89) Follow allergen avoidance, meds and continue SCIT as an adjunctive treatment to current regimen 11/25/2023 Other allergic rhinitis (ICD-10 - J30.89) 12/02/2023 Other allergic rhinitis (ICD-10 - J30.89) 12/08/2023 Other allergic rhinitis (ICD-10 - J30.89) 12/15/2023 Allergic rhinitis due to animal (cat) (dog) hair and dander (ICD-10 - J30.81) Follow allergen avoidance, meds and continue SCIT as an adjunctive treatment to current regimen 12/22/2023 Other allergic rhinitis (ICD-10 - J30.89) 12/27/2023 Allergic rhinitis due to animal (cat) (dog) hair and dander (ICD-10 - J30.81) Follow allergen avoidance, meds and continue SCIT as an adjunctive treatment to current regimen 01/03/2024 Other allergic rhinitis (ICD-10 - J30.89) 01/11/2024 Other allergic rhinitis (ICD-10 - J30.89) 01/18/2024 Other allergic rhinitis (ICD-10 - J30.89) 01/25/2024 Other allergic rhinitis (ICD-10 - J30.89) 01/31/2024 Abnormal results of pulmonary function studies (ICD-10 - R94.2) 02/01/2024 Other allergic rhinitis (ICD-10 - J30.89) 02/07/2024 Other allergic rhinitis (ICD-10 - J30.89) 02/15/2024 Other allergic rhinitis (ICD-10 - J30.89) 02/22/2024 Other allergic rhinitis (ICD-10 - J30.89) 02/29/2024 Other allergic rhinitis (ICD-10 - J30.89) 03/06/2024 Other allergic rhinitis (ICD-10 - J30.89) 04/05/2024 Other allergic rhinitis (ICD-10 - J30.89) 04/18/2024 Other allergic rhinitis (ICD-10 - J30.89) 03/21/2024 Allergic rhinitis due to animal (cat) (dog) hair and dander (ICD-10 - J30.81) Follow allergen avoidance, meds and continue SCIT as an adjunctive treatment to current regimen 05/02/2024 Other allergic rhinitis (ICD-10 - J30.89) 05/30/2024 Other allergic rhinitis (ICD-10 - J30.89) 06/06/2024 Other allergic rhinitis (ICD-10 - J30.89) 06/13/2024 Other allergic rhinitis (ICD-10 - J30.89) 07/11/2024 Other allergic rhinitis (ICD-10 - J30.89) 07/18/2024 Allergic rhinitis due to animal (cat) (dog) hair and dander (ICD-10 - J30.81) Follow allergen avoidance, meds and continue SCIT as an adjunctive treatment to current regimen 08/10/2024 Other allergic rhinitis (ICD-10 - J30.89) 08/10/2024 Other chronic allergic conjunctivitis (ICD-10 - H10.45) 07/18/2024 Other allergic rhinitis (ICD-10 - J30.89) Follow allergen avoidance, meds and continue SCIT as an adjunctive treatment to current regimen 06/13/2024 Other chronic allergic conjunctivitis (ICD-10 - H10.45) 07/11/2024 Other chronic allergic conjunctivitis (ICD-10 - H10.45) 06/06/2024 Other chronic allergic conjunctivitis (ICD-10 - H10.45) 05/02/2024 Other chronic allergic conjunctivitis (ICD-10 - H10.45) 05/30/2024 Other chronic allergic conjunctivitis (ICD-10 - H10.45) 04/05/2024 Other chronic allergic conjunctivitis (ICD-10 - H10.45) 04/18/2024 Other chronic allergic conjunctivitis (ICD-10 - H10.45) 03/21/2024 Other allergic rhinitis (ICD-10 - J30.89) Follow allergen avoidance, meds and continue SCIT as an adjunctive treatment to current regimen 03/06/2024 Other chronic allergic conjunctivitis (ICD-10 - H10.45) 02/29/2024 Other chronic allergic conjunctivitis (ICD-10 - H10.45) 02/07/2024 Other chronic allergic conjunctivitis (ICD-10 - H10.45) 02/15/2024 Other chronic allergic conjunctivitis (ICD-10 - H10.45) 02/22/2024 Other chronic allergic conjunctivitis (ICD-10 - H10.45) 02/01/2024 Other chronic allergic conjunctivitis (ICD-10 - H10.45) 01/11/2024 Other chronic allergic conjunctivitis (ICD-10 - H10.45) 01/18/2024 Other chronic allergic conjunctivitis (ICD-10 - H10.45) 01/25/2024 Other chronic allergic conjunctivitis (ICD-10 - H10.45) 01/03/2024 Other chronic allergic conjunctivitis (ICD-10 - H10.45) 12/27/2023 Other allergic rhinitis (ICD-10 - J30.89) Follow allergen avoidance, meds and continue SCIT as an adjunctive treatment to current regimen 12/22/2023 Other chronic allergic conjunctivitis (ICD-10 - H10.45) 12/15/2023 Other allergic rhinitis (ICD-10 - J30.89) Follow allergen avoidance, meds and continue SCIT as an adjunctive treatment to current regimen 12/08/2023 Other chronic allergic conjunctivitis (ICD-10 - H10.45) 12/02/2023 Other chronic allergic conjunctivitis (ICD-10 - H10.45) 11/22/2023 Other chronic allergic conjunctivitis (ICD-10 - H10.45) Given ocular signs and symptoms I encouraged allergy avoidance measures and meds as above. If symptoms persist, consider adding additional medications including intraocular antihistamine/mast cell stabilizer, PRN and continue SCIT as an adjunctive measure 11/25/2023 Other chronic allergic conjunctivitis (ICD-10 - H10.45) 11/18/2023 Other chronic allergic conjunctivitis (ICD-10 - H10.45) 09/20/2023 Other chronic allergic conjunctivitis (ICD-10 - H10.45) Given ocular signs and symptoms I encouraged allergy avoidance measures and meds as above. If symptoms persist, consider adding additional medications including intraocular antihistamine/mast cell stabilizer, PRN and consider SCIT as an adjunctive measure 11/11/2023 Other chronic allergic conjunctivitis (ICD-10 - H10.45) 10/18/2023 Other chronic allergic conjunctivitis (ICD-10 - H10.45) Given ocular signs and symptoms I encouraged allergy avoidance measures and meds as above. 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 We discussed penicillin skin testing and amoxicillin challenge. 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 We discussed penicillin skin testing and amoxicillin challenge. 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 We discussed penicillin skin testing and amoxicillin challenge. She is considering at this time 12/15/2023 Other chronic allergic conjunctivitis (ICD-10 - H10.45) Given ocular signs and symptoms I encouraged allergy avoidance measures and meds as above. If symptoms persist, consider adding additional medications including intraocular antihistamine/mast cell stabilizer, PRN and continue SCIT as an adjunctive measure 12/27/2023 Other chronic allergic conjunctivitis (ICD-10 - H10.45) Given ocular signs and symptoms I encouraged allergy avoidance measures and meds as above. If symptoms persist, consider adding additional medications including intraocular antihistamine/mast cell stabilizer, PRN and continue SCIT as an adjunctive measure 03/21/2024 Other chronic allergic conjunctivitis (ICD-10 - H10.45) Given ocular signs and symptoms I encouraged allergy avoidance measures and meds as above. If symptoms persist, consider adding additional medications including intraocular antihistamine/mast cell stabilizer, PRN and continue SCIT as an adjunctive measure 07/18/2024 Other chronic allergic conjunctivitis (ICD-10 - H10.45) Given ocular signs and symptoms I encouraged allergy avoidance measures and meds as above. 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 We discussed penicillin skin testing and amoxicillin challenge. 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 We discussed penicillin skin testing and amoxicillin challenge. 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 We discussed penicillin skin testing and amoxicillin challenge. 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 We discussed penicillin skin testing and amoxicillin challenge. She is considering at this time 11/22/2023 Elevated blood-pressure reading, without diagnosis of hypertension (ICD-10 - R03.0) BP elevated today without symptoms of urgency or emergency. Continue serial checks and follow-up with PCP 09/20/2023 Elevated blood-pressure reading, without diagnosis of hypertension (ICD-10 - R03.0) BP elevated today without symptoms of urgency or emergency. Continue serial checks and follow-up with PCP 10/18/2023 Elevated blood-pressure reading, without diagnosis of hypertension (ICD-10 - R03.0) BP elevated today without symptoms of urgency or emergency. Continue serial checks and follow-up with PCP 12/15/2023 Elevated blood-pressure reading, without diagnosis of hypertension (ICD-10 - R03.0) BP elevated today without symptoms of urgency or emergency. Continue serial checks and follow-up with PCP 12/27/2023 Elevated blood-pressure reading, without diagnosis of hypertension (ICD-10 - R03.0) BP elevated today without symptoms of urgency or emergency. Continue serial checks and follow-up with PCP 03/21/2024 Elevated blood-pressure reading, without diagnosis of hypertension (ICD-10 - R03.0) BP elevated today without symptoms of urgency or emergency. Continue serial checks and follow-up with PCP 07/18/2024 Elevated blood-pressure reading, without diagnosis of hypertension (ICD-10 - R03.0) BP elevated today without symptoms of urgency or emergency. Continue serial checks and follow-up with PCP 03/20/2024 Other 11/18/2023 Other 11/25/2023 Other 12/02/2023 Other 12/08/2023 Other 12/22/2023 Other 01/03/2024 Other 01/11/2024 Other 01/18/2024 Other 01/25/2024 Other 02/01/2024 Other 02/07/2024 Other 02/15/2024 Other 02/22/2024 Other 02/29/2024 Other 03/06/2024 Other 04/05/2024 Other 04/18/2024 Other 05/02/2024 Other 05/30/2024 Other 06/06/2024 Other 06/13/2024 Other 07/11/2024 Other 08/10/2024 Other Plan Of Treatment Next Appt Details Provider Name:Chadwick Markham , 08/31/2024 02:00:00 PM, [address], [address], [place], [address], Provider Name:Connie arellano, 11/28/2024 10:00:00 AM, [address], [address], [place], [address], Insurance Providers Payer Name Payer Address Payer Phone Subscriber Number Group Number Insured Name Patient Relationship to Insured Coverage Start Date Coverage End Date [employer] (Medicare) Attention Claims [address] [place] [address] [id number] Raysa Quan Self - patient is the insured [employer] [address] [place] [id number] Raysa Quan Self - patient is the insured Medical (General) History Medical History History ICD Code Other chronic allergic conjunctivitis Other chronic allergic conjunctivitis H1 0.45 Other allergic rhinitis J30.89 Allergic rhinitis due to animal (cat) (d og) hair and dander J30.81 Allergic rhinitis due to pollen J30.1 Surgical History Surgery Date(Month/Year) Lens Replacement 04/21/2010 Cyst on Left Breast Removed 09/12/2001 Torn Meniscus - Left Knee 07/13/2006 Torn Meniscus - Right Knee 02/12/2009 Tonsils/Adnoids 1960 Hospitalization History Reason Date(Month/Year) Child 04/21/1980 Pneumonia 11/13/1969 Pneumonia 04/15/1955
--- OUTSIDE RECORDS SUMMARY | 2024-08-10 13:31 | XMS_ITS | Encounter Summary ---
[facility] Organization [facility] Address 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
--- OUTSIDE RECORDS SUMMARY | 2024-08-10 13:31 | XMS_ITS | Encounter Summary ---
Author Organization [facility] Address [address] [place] [address] Care Team Providers Care Ophthalmic Photographer Name Role Phone Chadwick Coburn MD Primary Care Provider [phone]- [phone] Encounter Details Date Type Department Care Team (Latest Contact Info) Description 09/29/2001 Outpatient Historical [facility] Boucher, Nickolas Alvarado MD [address] [facility] [address] [place] [address] UNSP ABNORMAL MAMMOGRAM (Primary Dx) Social History Tobacco Use Types Packs/Day Years Used Date Smoking Tobacco: Never Assessed Comments Unknown Sex and Gender Information Value Date Recorded Sex Assigned at Not on file Legal Sex Female 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
== END 2024-08-10 13:27 | disposition home or self-care (01) ==
LOC: CHSIMG 13:29
PROVIDERS: PCP Family Medicine Adolescent Medicine; Visit Provider Family Medicine Adolescent Medicine
DX: Z78.0 Asymptomatic menopausal state (principal)
CPT/HCPCS: 77080